=== PATIENT | female | born 1960 | race Caucasian/White ===

== ENCOUNTER 2022-06-17 15:01 | Inpatient (IN) | payer BC, MEDICARE, SELFPAY ==
[2022-06-17] VITALS (10 sets, daily range): BP systolic 108–163; BP diastolic 60–84; PULSE 69–95; RESP 16–18; TEMP 36.4–36.7; O2SAT 95–98; BMI 15.6
[2022-06-17 15:49] LABS: Basophils Percent Auto 0.5 % (0.0-3.0); Eosinophils Percent Auto 1.1 % (0.0-7.0); Hematocrit 34.6 % (33.0-51.0); Hemoglobin* 10.6 gm/dL (12.0-16.0); Immature Granulocytes Pct Auto 1.5 %; Lymphocytes Percent Auto 8.6 % (20-44); Mean Corpuscular HGB Conc 31 gm/dL (32-36); Mean Corpuscular Hemoglobin 33 pg (26-34); Mean Corpuscular Volume 108 fL (80-100); Monocytes Percent Auto 5.2 % (0.0-11.0); Neutrophils Percent Auto 83.1 % (42.0-72.0); Platelet Count* 417 K/uL (140-440); RDW Coefficient of Variation % 18.3 % (11.5-15.5); Red Blood Count 3.22 m/uL (4.00-5.20); White Blood Count* 13.71 K/uL (4.50-11.00)
[2022-06-17 15:51] LABS: Slide Review Reflex Yes
[2022-06-17 16:05] LABS: Albumin* 3.2 g/dL (3.3-5.0); Chloride* 118 mmol/L (96-114); Potassium* 3.9 mmol/L (3.6-5.1); Sodium* 143 mmol/L (135-149)
[2022-06-17 16:08] LABS: Blood Urea Nitrogen* 51 mg/dL (7-30); Carbon Dioxide* 17 mmol/L (20-32); Creatinine* 1.5 mg/dL (0.5-1.5); Estimated Glomerular Filt Rate 39 ml/min
[2022-06-17 16:09] LABS: Calcium* 8.1 mg/dL (8.4-10.6); Glucose* 60 mg/dL (60-115); Phosphorus* 4.4 mg/dL (2.5-4.5)
[2022-06-17 16:11] LABS: C Reactive Protein* 5.3 mg/dL (0.5-1.0)
[2022-06-17 16:16] LABS: Slide Review Acceptable Review (Acceptable)
[2022-06-17 16:21] LABS: Troponin I* < 0.01 ng/mL (0.01-0.04)
--- NOTE | 2022-06-17 16:25 | PM.IMHP1 ---
Hospitalist- H&P: HPI History of Present Illness Time Seen by Provider: 16:00 Date Seen: 06/17/22 Chief complaint: Gangrene R 3rd toe, cellulitis R foot up to ankle Narrative: Diamond Henson is a 61 year old woman who presents to the hospital today as a direct admit from Dr. Venkatesh Persaud, work environment safety inspector, who refers the patient for admission to the hospital due to gangrene of right 3rd toe with associated cellulitis up to the level of the ankle and the same right foot. Patient tells me she has had an evolving wound right 3rd toe over the past 2 1/2 months. Over the last 1-2 weeks it has become significantly worse. Presented to 1 of her her primary care physicians, Dr. Cabello, today who referred her to Dr. Krishna, who upon assessing the patient refer the patient to the hospital for a direct admission for urgent OR debridement and possible amputation. Patient denies any pain. She is concerned about postoperative pain. Known to have diabetic peripheral neuropathy. Diagnosed with diabetes mellitus type 1 when she was 42 years of age. Tells me her blood sugars normally run between 90 and 120. Uses an insulin pump. Uses the [employer] blood glucose monitoring device. Denies hypo or hyperglycemia. Tells me she has lost about 30 lb over the past 3 months. This has stabilized and she is no longer losing weight. Denies fevers, rigors, diaphoresis. Denies night sweats. Review of Systems Status of ROS: Reports: 10 or more systems reviewed and unremarkable except as noted in History and below Narrative: Denies chest heaviness, pressure, tightness, or pain. Denies syncope or near-syncope. Denies nausea or vomiting. Denies palpitations or chest fluttering. Denies cough, dyspnea, paroxysmal nocturnal dyspnea, orthopnea. Takes torsemide diuretic daily. Develops dependent edema lower extremities when does not take her diuretic. Chronic diarrhea. Chronic pancreatic insufficiency for which she takes pancreatic enzymes. Concerned about getting nausea and vomiting when she takes opioids. Tells me in no uncertain terms that she does not have allergy to opioids. Has had intermittent nausea vomiting when taking morphine and codeine. Currently not taking any opioids. History of chronic pain for which she took opioids on a contract. Able to carry out her activities of daily living without any concerns. Designates her , Jasbir, as her power of civil attorney for health should that be required. His cell phone number is [phone]. Requests attempted resuscitation only with witnessed arrest. Does not wish to be kept alive in a persistent vegetative state. [facility] Medical History Abnormal coronary angiogram Abnormal nuclear stress test Atherosclerosis of [place] coronary artery of [place] heart without angina pectoris Cholelithiasis Chronic diarrhea Chronic kidney disease, stage 3b Diabetes mellitus type 1 with complications DM type 1 with diabetic peripheral neuropathy Essential hypertension History of colitis History of COVID-19 History of rectal bleeding History of stroke History of tobacco abuse History of upper gastrointestinal bleeding Hyperlipidemia Insulin pump in place Iron deficiency anemia Malabsorption due to disorder of pancreas Multiple subsegmental pulmonary emboli without acute cor pulmonale Neurogenic bowel Pancreatic steatorrhea Personality disorder Small bowel perforation Stenosis of left anterior descending artery Type 1 diabetes mellitus with diabetic gastropathy Surgical History History of gastric bypass Status post section Status post laparotomy Meds Home Medications and Allergies Home Medications Medication Instructions Recorded Confirmed Type aspirin 81 mg tablet,delayed 81 mg PO DAILY 06/17/22 06/17/22 History release bupropion HCl 75 mg tablet 75 mg PO BID 06/17/22 06/17/22 History cholecalciferol (vitamin D3) 125 125 mcg PO DAILY 06/17/22 06/17/22 History mcg (5,000 unit) tablet (Vitamin D3) clopidogrel 75 mg tablet 75 mg PO DAILY 06/17/22 06/17/22 History cyanocobalamin (vitamin B-12) 500 1,000 mcg PO DAILY 06/17/22 06/17/22 History mcg tablet (Vitamin B-12) insulin aspart U-100 100 unit/mL subcut DAILY 06/17/22 History subcutaneous solution (Novolog U-100 Insulin aspart) nitroglycerin 0.4 mg sublingual 0.4 mg sublingual Q5M PRN 06/17/22 06/17/22 History tablet pantoprazole 40 mg tablet,delayed 40 mg PO BID 06/17/22 06/17/22 History release potassium chloride 20 mEq 20 meq PO BIDWM 06/17/22 06/17/22 History tablet,extended release(part/cryst) pyridoxine (vitamin B6) 50 mg 50 mg PO DAILY 06/17/22 06/17/22 History tablet (Vitamin B-6) torsemide 20 mg tablet 40 mg PO DAILY 06/17/22 06/17/22 History Exam Narrative: Exam Narrative: Alert, oriented to self, place, time, situation. Angry about her current medical condition and need to be in the hospital. Articulate, cooperative. Blunt in her interactions. Mood and affect are congruent. Very thin. Cachectic appearance. Decreased hearing bilaterally. Able to hear slightly lower than conversation voice. Bilateral cataracts, small. Vision otherwise grossly normal. Edentulous. Neck is supple. Midline trachea. Normal thyroid. No JVD or hepatojugular reflux. No carotid bruits. Lungs are clear to auscultation bilaterally. No CVA tenderness. Heart tones with regular rhythm, normal S1-S2, without murmur, gallop, or rub. Abdomen with active bowel sounds, soft, nontender. Thin abdomen. Skin is thin with subcutaneous atrophy. Multiple ecchymosis of upper and lower extremities. No jaundice, petechiae. Cellulitis right lower extremities up to the level of the ankle. Gangrene of right 3rd toe. Palpable edema bilateral lower extremities up to the level of the knee. Independent transfer, station, gait. No tremor, asterixis, or ataxia. No focal motor neurologic deficits. Hospitalist - H&P: Result Labs Labs: Short CBC 06/17/22 Range/Units 15:36 WBC 13.71 H (4.50-11.00) K/uL Hgb 10.6 L (12.0-16.0) gm/dL Hct 34.6 (33.0-51.0) % Plt Count 417 (140-440) K/uL BMP 06/17/22 15:36 Sodium 143 Potassium 3.9 Chloride 118 H Carbon Dioxide 17 L BUN 51 H Creatinine 1.5 Glucose 60 Calcium 8.1 L Cardiac Enzymes 06/17/22 Range/Units 15:36 Troponin I < 0.01 L (0.01-0.04) ng/mL Liver Function 06/17/22 Range/Units 15:36 Albumin 3.2 L (3.3-5.0) g/dL Assessment and Plan Assessment and plan (1) Cellulitis of right foot: Status: Acute Assessment and Plan: Blood cultures obtained. Initiate piperacillin with tazobactam 2.25 mg IV Q 6 hours. (2) Gangrene associated with type 1 diabetes mellitus: Problem comment: Right 3rd toe. Suspect osteomyelitis. Status: Acute Assessment and Plan: Will go to the OR later today. NPO. IV fluids with lactated Ringer's. Will write for postoperative opioid order for pain management, hydromorphone, with p.r.n. ondansetron for nausea. (3) Diabetes mellitus type 1 with complications: Status: Acute Assessment and Plan: Continue with glucose monitoring and insulin administration. Architecture Manager consult. (4) DM type 1 with diabetic peripheral neuropathy: Status: Acute Assessment and Plan: Continue the supportive medications. (5) Insulin pump in place: Status: Acute (6) Hypoglycemia due to type 1 diabetes mellitus: Status: Acute Assessment and Plan: Decrease insulin dosing. Glucagon 1 mg IV x1. D5 normal saline 500 mL over 1 hour. Plan 1. Reviewed with patient and . They are agreeable. 2. Will support Dr. Krishna's efforts while the patient is in hospital.
[2022-06-17] MEDS: LACTATED RINGERS 1000 ML 1,000 ML 75 ML IV (16:41)
[2022-06-17] MEDS: GLUCAGON,HUMAN RECOMBINANT 1 MG/ML VIAL IV (16:41)
[2022-06-17 17:59] LABS: SARS PCR* Negative SARS-CoV-2 (Negative)
[2022-06-17 18:32] LABS: Appearance Urine Clear (Clear); Bilirubin Urine Negative (Negative); Blood Urine Negative (Negative); Color Urine Yellow (Yellow); Glucose Urine Negative (Negative); Ketones Urine Negative (Negative); Leukocyte Esterase Urine Negative (Negative); Nitrite Urine Negative (Negative); Protein Urine 1+ (Negative); Specific Gravity Urine 1.015 (1.000-1.030); Urobilinogen Urine 0.2 (0.2-1.0); pH Urine 5.5 (5.0-8.5)
[2022-06-17 18:38] LABS: RBC Urine 0-2 (0-2); WBC Urine 0-2 (0-5)
[2022-06-17 18:39] LABS: Squamous Epithelial Cell Urine Few (None-Few)
[2022-06-17] MEDS: PIPERACILLIN/TAZOBACTAM 2.25 GM in 0.9 % SODIUM CHLORIDE Mini-bag 100 ML IVPB (18:59)
--- NOTE | 2022-06-17 20:10 | SUR.OPER ---
PATIENT QUESTIONS ANSWERED SATISFACTORILY PREOPERATIVELY.? PATIENT BROUGHT TO OR #2 PER MED/SURG BED.? Patient positioned supine on OR #2 bed.? The perioperative?team supported arms bilaterally on arm boards.? Final approval of positioning by surgeon.
--- NOTE | 2022-06-17 20:22 | PM.GSPRC ---
Operative Note Date of procedure: 06/17/22 Pre-op diagnosis: Gangrene 3rd toe right foot Post-op diagnosis: Gangrene 3rd toe right foot Type of Procedure: Amputation 3rd toe right foot by MPJ disarticulation Indications: patient was admitted to the hospital for gangrene of right 3rd toe. Urgent surgical intervention is warranted to control infection. I discussed this at length with the patient and her . I reviewed the procedure, recovery, expectations and potential complications. Written consent was obtained. Procedure Description: After discussing the risks and benefits of the procedure, the patient signed informed consent.? The operative site was marked and the patient was brought to the operating room and placed on the operating table in supine position.? Care was taken to pad the patient's pressure points.?? The patient was then given sedation by anesthesia.?? I injected 15 mL 0.5% Marcaine plain into the right foot. The operative site was then prepped and draped in the usual sterile fashion.? A time-out was then performed. An incision was made around the base of the 3rd toe down to bone. Minimal bleeding encountered. Surgeon was carried down into the metatarsophalangeal joint and the 3rd toe disarticulated and removed in total. Wound cultures from the deep recess were obtained and sent for sensitivities. The proximal phalanx was fragmented brown and necrotic. Third metatarsal head was normal in appearance with no sign of erosion or infection. Surrounding subcutaneous necrotic tissue was excised back to healthy bleeding margins. Wound was then thoroughly irrigated with sterile saline and packed open with saline moistened gauze. A small ulceration was noted to the medial aspect of the 4th toe. Sharp excisional debridement was performed on this toe as well including subcutaneous tissue but not bone. Sterile dressings were then applied. ? The patient was then woken and transported to [facility]. The patient tolerated the procedure well. continue IV antibiotics. Findings: Complications: None apparent culture obtained and sent for sensitivities. Anesthesia: MAC and local Surgeon: Venkatesh Krishna DPM Estimated blood loss (mL): 5 Condition: stable Disposition: floor
--- NOTE | 2022-06-17 20:31 | W.ANESCHARGE ---
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
[2022-06-17] MEDS: OMEPRAZOLE 20 MG CAPSULE DR 40 MG PO (21:46)
[2022-06-17] MEDS: buPROPion HCL 75 MG TABLET PO (21:46)
[2022-06-17] MEDS: NICOTINE 21 MG PATCH 1 PATCH TRANSDERMA (21:47)
--- NOTE | 2022-06-17 23:11 | PC.NURSE ---
Shift [id number]- Patient arrives with . She is very brief and josh with answers to some intake questions. She arrives with mepilex to coccyx- she states there is a small wound under- Mepilex was clean, dry and intact. Also noted was an incision to stomach, though patient states she forgot what the procedure was for. She goes to surgery this evening. After return, vital signs are reassuring, she is tolerating regular diet and denies pain. She has insulin pump and meter- meter reads at 72 this afternoon- MD updated- see orders and charting for administrations. Blood glucose is >200 prior to surgery and >200 upon return from surgery- see charting for values.
[2022-06-18] VITALS (9 sets, daily range): BP systolic 120–144; BP diastolic 65–78; PULSE 67–73; RESP 14–18; TEMP 36.5–37.4; O2SAT 93–100; BMI 15.5
[2022-06-18] MEDS: PIPERACILLIN/TAZOBACTAM 2.25 GM in 0.9 % SODIUM CHLORIDE Mini-bag 100 ML IVPB ×4 (01:07→18:46)
[2022-06-18] MEDS: 0.9 % SODIUM CHLORIDE 250 ml IV (01:08)
[2022-06-18] MEDS: HYDROmorphone 2 MG TABLET PO ×3 (03:18→21:07)
--- NOTE | 2022-06-18 05:33 | PC.NURSE ---
[id number] Pt can be disagreeable with care team. therapeutic communication and trust building important with patient. Pt L wrist IV infiltrated and pt refused IV placement to R side, stating she won't be able to write or wipe if there's an IV there, educated pt that she will be able to write and wipe even with an IV to R arm, pt continued to refuse, new IV started to L upper FA. At 2300, Pt own glucometer read high which indicated >400, Pt insulin suggested was 2.8units, patient states she is sensitive to insulin so only bolused 1.25 units. recheck at 1130 still stated high, pt did not give herself insulin at this time, rechecked at midnight, continued to read high, bolused 1.25 units again. At this point nurse checked BG with hospital glucometer, results of BG at 0010 with hospital glucometer was 257, at this time pt own glucometer read 393. informed patient that due to large discrepency between her own and hospital blood glucose reading we will need to continue checking her BG with hospital glucometer. Asked patient when the last time she calibrated her glucometer was, she stated yesterday when I inserted a new one, informed her that calibration was off and she needed to follow up. at 0300 BG reading, pt refused nurse to check with hospital glucometer, pt checked with her own. Pt denied pain rating 0/10 until approx 0300, at which point when nurse entered room pt stated she can't take this pain anymore and rated pain 8/10, when asked when pain started she said she was having it all night but didn't want to tell nurse because she didn't want to take pain medication. educated pt and she has the right to refuse pain medication but it was important to inform care team of pain so management can be achieved, prn medication administered, reassessment of pain 5/10 and pt stated it took the edge off and it was tolerable. ambulating to BR with walker, SBA, tolerated activity fairly well. Dressing to R food intact, sanguineous drainage noted to 3rd R toe, reinforcement not needed at this time. R leg elevated with bed and pillow. Pt STELLA applied to L leg, pt refused SCD placement. Nicotine patch present to L shoulder. pt denies N/V.
[2022-06-18] MEDS: POTASSIUM CHLORIDE 10 MEQ CAPSULE ER 20 MEQ PO ×2 (08:21→18:46)
[2022-06-18] MEDS: PYRIDOXINE HCL (VITAMIN B6) 25 MG TABLET 50 MG PO (08:38)
[2022-06-18] MEDS: buPROPion HCL 75 MG TABLET PO ×2 (08:38→21:06)
[2022-06-18] MEDS: CYANOCOBALAMIN (VITAMIN B-12) 500 MCG TABLET 1000 MCG PO (08:39)
[2022-06-18] MEDS: CLOPIDOGREL 75 MG TABLET PO (08:39)
[2022-06-18] MEDS: TORSEMIDE 20 MG TABLET 40 MG PO (08:39)
--- NOTE | 2022-06-18 10:46 | P.IMPN_ITS ---
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 Krishna of Podiatry - on Zosyn - arterial u/s and segmental pressures ordered Status: Acute (2) Noncompliance by declining service: Problem details: - patient declining labs 06/18, amenable to having them drawn 06/19 - also declining SSI and regular accuchecks, would prefer to use own meter, own insulin and SS, and self-administer her Imodium - able to verbalize risks, met with administration 06/18 to discuss behavior e xpectations Status: Acute (3) Diabetes mellitus type 1 with complications: Problem details: - last outpatient AqC 6.2 on 03/2022 Status: Acute (4) DM type 1 with diabetic peripheral neuropathy: Status: Acute (5) Insulin pump in place: Status: Acute (6) Hypoglycemia due to type 1 diabetes mellitus: Status: Acute (7) Chronic diarrhea: Problem details: - on chronic Imodium as outpatient, would like to keep at bedside and self- administer prn Status: Acute Plan - per above - home Plavix for prophylaxis - multiple visits to patient room today to discuss behaviors and expectation. She had plan to leave AMA on 2 different occasions; was amenable to remaining in the hospital after multiple risk benefit discussions - also discussed patient's concerns with Jeffrey and PCP, Dr. Floyd. They both recommend the patient stay in the hospital for medical management of Subjective Date Seen: 06/18/22 Interval history: Diamond has refused a variety of cares this morning. She had initially hoped to be discharged home today; considered leaving AMA, eventually agreed to stay in the hospital. She was seen by administration to discuss her concerns. States pain is moderate, feels that this is appropriate and not out of proportion to what she would expect postoperatively. She is using her own blood sugar monitor and sliding scale insulin for diabetic management. Exam Narrative: Exam Narrative: GEN: Alert in oriented, sitting in bedside chair HEENT: EOMIs bilaterally, no scleral icterus CV: RRR, No concerning murmurs, rubs, or gallops R: LCTA bilaterally without concerning wheezing, air movement adequate Ext: Concerning edema, right 3rd toe is wrapped, mild surrounding erythema noted Skin: Scattered bruising of extremities noted Neuro: No focal deficits Psych: Intermittent agitation regarding hospital stay, redirectable Const: Vital Signs, click to edit/add: Vital Signs - 24 hr 06/17/22 17:40 06/17/22 17:40 06/17/22 19:07 Temperature 98.1 F 98 F Pulse Rate Pulse Rate [Pulse Oximeter] 95 79 Respiratory Rate 18 16 Blood Pressure [Le ft Arm] 137/70 136/74 Blood Pressure [Ri ght Arm] Pulse Oximetry 95 95 95 Oxygen Delivery Me thod Room Air Room Air 06/17/22 20:25 06/17/22 20:30 06/17/22 20:45 Temperature 97.6 F Pulse Rate 71 Pulse Rate [Pulse Oximeter] 72 71 Respiratory Rate 16 16 16 Blood Pressure [Le ft Arm] 108/62 109/60 120/64 Blood Pressure [Ri ght Arm] Pulse Oximetry 97 97 Oxygen Delivery Me thod Room Air Room Air Room Air 06/17/22 21:00 06/17/22 21:30 06/17/22 22:00 Temperature Pulse Rate Pulse Rate [Pulse Oximeter] 71 69 70 Respiratory Rate 16 16 16 Blood Pressure [Le ft Arm] 128/73 134/72 163/84 H Blood Pressure [Ri ght Arm] Pulse Oximetry 97 95 96 Oxygen Delivery Me thod Room Air Room Air Room Air 06/17/22 22:45 06/17/22 23:00 06/17/22 23:00 Temperature 98.0 F Pulse Rate Pulse Rate [Pulse Oximeter] 75 88 Respiratory Rate 16 16 16 Blood Pressure [Le ft Arm] 126/70 121/78 Blood Pressure [Ri ght Arm] Pulse Oximetry 97 95 95 Oxygen Delivery Me thod Room Air Room Air Room Air 06/18/22 00:00 06/18/22 02:17 06/18/22 01:00 Temperature 97.9 F 98.0 F 97.8 F Pulse Rate Pulse Rate [Pulse Oximeter] 73 68 69 Respiratory Rate 16 16 16 Blood Pressure [Le ft Arm] 132/73 120/65 124/68 Blood Pressure [Ri ght Arm] Pulse Oximetry 100 98 97 Oxygen Delivery Me thod Room Air Room Air Room Air 06/18/22 02:00 06/18/22 07:00 06/18/22 07:00 Temperature 98.0 F 98.5 F Pulse Rate Pulse Rate [Pulse Oximeter] 68 67 67 Respiratory Rate 16 14 14 Blood Pressure [Le ft Arm] 120/65 Blood Pressure [Ri ght Arm] 144/78 H Pulse Oximetry 98 96 Oxygen Delivery Me thod Room Air Room Air 06/18/22 07:00 Temperature Pulse Rate Pulse Rate [Pulse Oximeter] Respiratory Rate 14 Blood Pressure [Le ft Arm] Blood Pressure [Ri ght Arm] Pulse Oximetry 96 Oxygen Delivery Me thod Room Air Labs Labs: Laboratory Results - last 24 hr 06/17/22 06/17/22 06/17/22 15:34 15:36 15:36 WBC 13.71 H RBC 3.22 L Hgb 10.6 L Hct 34.6 MCV 108 H MCH 33 MCHC 31 L RDW Coeff of [place] 18.3 H Plt Count 417 Neut % (Auto) 83.1 H Lymph % (Auto) 8.6 L [place] % (Auto) 5.2 Eos % (Auto) 1.1 Baso % (Auto) 0.5 Neut # (Auto) 11.40 H Lymph # (Auto) 1.20 [place] # (Auto) 0.70 Eos # (Auto) 0.20 Baso # (Auto) 0.10 Diff Slide Review Acceptable Review Sodium 143 Potassium 3.9 Chloride 118 H Carbon Dioxide 17 L BUN 51 H Creatinine 1.5 Estimated GFR 39 Glucose 60 Lactate Calcium 8.1 L Phosphorus 4.4 Troponin I < 0.01 L C-Reactive Protein 5.3 H Albumin 3.2 L Urine Color Yellow Urine Appearance Clear Urine pH 5.5 Ur Specific [place] 1.015 Urine Protein 1+ A Urine Glucose (UA) Negative Urine Ketones Negative Urine Blood Negative Urine Nitrite Negative Urine Bilirubin Negative Urine Urobilinogen 0.2 Ur Leukocyte Esterase Negative Urine RBC 0-2 Urine WBC 0-2 Ur Squamous Epith Cells Few Urine Bacteria None Urine Yeast Many A SARS-CoV-2 (PCR) 06/17/22 06/17/22 15:36 17:16 WBC RBC Hgb Hct MCV MCH MCHC RDW Coeff of [place] Plt Count Neut % (Auto) Lymph % (Auto) [place] % (Auto) Eos % (Auto) Baso % (Auto) Neut # (Auto) Lymph # (Auto) [place] # (Auto) Eos # (Auto) Baso # (Auto) Diff Slide Review Sodium Potassium Chloride Carbon Dioxide BUN Creatinine Estimated GFR Glucose Lactate 2.0 H Calcium Phosphorus Troponin I C-Reactive Protein Albumin Urine Color Urine Appearance Urine pH Ur Specific [place] Urine Protein Urine Glucose (UA) Urine Ketones Urine Blood Urine Nitrite Urine Bilirubin Urine Urobilinogen Ur Leukocyte Esterase Urine RBC Urine WBC Ur Squamous Epith Cells Urine Bacteria Urine Yeast SARS-CoV-2 (PCR) Negative SARS-CoV-2
--- NOTE | 2022-06-18 11:30 | PC.NURSE ---
Patient requesting to speak with nursing hydroelectric powerplant supervisor as patient refusing to allow staff to see what medications patient is taking out of her pocket. Slurry Tank Operator spoke with patient. Patient refused to allow nursing hydroelectric powerplant supervisor to see and identify the medication that she took. Patient stated I have had chronic diarrhea for years and I am told by my doctor that I need to have Imodium and that I can just buy it over the counter like any other pain relieving medication. Educated patient that it is our policy to have our pharmacy identify the home medication to ensure for her safety that we are not giving other medications that could interact with medications that she has been taking from home. Patient continues to refuse. Framing Mechanic On-call was notified and spoke with patient as well. Patient continues to refuse to allow staff to identify medication. Dr. Montesinos was notified of this. Asked patient to fill out a belongings form and patient refused to at this time.
--- NOTE | 2022-06-18 12:30 | PC.NURSE ---
Blood sugar was checked at 1130 and this was 278. Patient stated that she recalibrated her dexacom and that it is accurate with our readings. Patient would not allow content writer to look at number on dexacom. Educated patient that per the insulin protocol, she needs 3units of aspart insulin to cover her blood sugar. Patient refused insulin and stated that her pump is giving her a tenth of a unit of insulin per hour. She stated she was not going to eat lunch today because her brought her in a bunch of snacks that she has been munching on all morning. notified of this.
--- NOTE | 2022-06-18 13:07 | REH.OT ---
Pt refused 3 attempts for OT evaluation. She reports that there is nothing she needs and she is getting by just fine.
--- NOTE | 2022-06-18 14:10 | PC.NURSE ---
End of Shift([id number]) Patient has been angry, pleasant, and cooperative at times. Patient is vitally stable, lungs clear, BS WNL, IV intact. Patient 1 assist, walker, gb. Patient rated pain 6/10 once, patient declined pain meds saying I want to go as long as I can with out pain meds. Patient declined Tylenol because she is a type 1 Diabetic, and later reports no pain. While beginning dressing change patient took out a box of Imodium, telegraphic typewriter installer educated how it can be unsafe to take medications the doctor is not aware the patient is taking the medication. Patient pointed at telegraphic typewriter installer and told her to shut her mouth. Sewing Demonstrator reported to charge nurse that patient has own Imodium that she is going to take. Patient took 2 Imodium and put box in patient's pocket. Sewing Demonstrator continued with dressing change and warehouse puller spoke with patient about the Imodium. Patient is angry and expresses she does not want to be baby sat. Later clinical nursing coordinator also had a conversation with patient. Sewing Demonstrator has been taking blood sugar by finger stick as overnight dexacom blood sugar was much higher then finger stick. Patient declines insulin provided by RN. laboratory animal facility supervisor filled what she could of insulin pump sheet but patient would not let warehouse puller see patient's insulin pump. Patient right 3rd toe dressing change complete, vashe, gauze, kerlix, and hortensia bandage used. Patient's right leg above the ankle but below the knee is reddened and warm. Patient tolerating regular diet and urinating.
--- NOTE | 2022-06-18 18:43 | W.PM.PODPN ---
Podiatry-PN: Subj Subjective Time Seen by Provider: 18:30 Date Seen: 06/18/22 Interval history: Patient seen bedside today for recheck of her right diabetic foot infection. She is postop day 1 following open amputation of 3rd toe right foot. She states that she is doing well overall with no significant concerns with verbalized to me. She feels the redness, swelling and discomfort in her right foot is at her baseline. 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 Krishna of Podiatry - on Zosyn - arterial u/s and segmental pressures ordered Status: Acute (2) Cellulitis of right foot: Status: Acute Plan Status post 3rd toe amputation right foot postop day 1. Cultures are growing gram positive cocci but sensitivities are not complete. Recommend we wait until sensitivities available before discharge home with oral antibiotics. VASHE moistened gauze packed into the wound. Nursing to change tomorrow. Weightbearing as tolerated. Arterial ultrasound with GRAEME and segmental pressures has been ordered but not completed. Exam Narrative: Exam Narrative: Right foot with diminished edema and improving erythema. Open surgical wound at the 3rd metatarsal head with small amount of medial skin necrosis. No purulence noted. Wound depth with no additional necrosis. Exposed 3rd metatarsal head. Stable ulceration medial aspect 4th toe PIPJ. No exposed bone. Improved granulation tissue. Const: Vital Signs, click to edit/add: Vital Signs - 24 hr 06/17/22 19:07 06/17/22 20:25 06/17/22 20:30 Temperature 98 F 97.6 F Pulse Rate 71 Pulse Rate [Pulse Oximeter] 79 72 Respiratory Rate 16 16 16 Blood Pressure [Le ft Arm] 136/74 108/62 109/60 Blood Pressure [Ri ght Arm] Pulse Oximetry 95 97 Oxygen Delivery Me thod Room Air Room Air Room Air 06/17/22 20:45 06/17/22 21:00 06/17/22 21:30 Temperature Pulse Rate Pulse Rate [Pulse Oximeter] 71 71 69 Respiratory Rate 16 16 16 Blood Pressure [Le ft Arm] 120/64 128/73 134/72 Blood Pressure [Ri ght Arm] Pulse Oximetry 97 97 95 Oxygen Delivery Me thod Room Air Room Air Room Air 06/17/22 22:00 06/17/22 22:45 06/17/22 23:00 Temperature Pulse Rate Pulse Rate [Pulse Oximeter] 70 75 Respiratory Rate 16 16 16 Blood Pressure [Le ft Arm] 163/84 H 126/70 Blood Pressure [Ri ght Arm] Pulse Oximetry 96 97 95 Oxygen Delivery Me thod Room Air Room Air Room Air 06/17/22 23:00 06/18/22 00:00 06/18/22 02:17 Temperature 98.0 F 97.9 F 98.0 F Pulse Rate Pulse Rate [Pulse Oximeter] 88 73 68 Respiratory Rate 16 16 16 Blood Pressure [Le ft Arm] 121/78 132/73 120/65 Blood Pressure [Ri ght Arm] Pulse Oximetry 95 100 98 Oxygen Delivery Me thod Room Air Room Air Room Air 06/18/22 01:00 06/18/22 02:00 06/18/22 07:00 Temperature 97.8 F 98.0 F 98.5 F Pulse Rate Pulse Rate [Pulse Oximeter] 69 68 67 Respiratory Rate 16 16 14 Blood Pressure [Le ft Arm] 124/68 120/65 Blood Pressure [Ri ght Arm] 144/78 H Pulse Oximetry 97 98 96 Oxygen Delivery Me thod Room Air Room Air Room Air 06/18/22 07:00 06/18/22 07:00 06/18/22 11:00 Temperature 99.3 F Pulse Rate Pulse Rate [Pulse Oximeter] 67 72 Respiratory Rate 14 14 14 Blood Pressure [Le ft Arm] 134/68 Blood Pressure [Ri ght Arm] Pulse Oximetry 96 94 Oxygen Delivery Me thod Room Air Room Air 06/18/22 15:00 Temperature Pulse Rate Pulse Rate [Pulse Oximeter] Respiratory Rate Blood Pressure [Le ft Arm] Blood Pressure [Ri ght Arm] Pulse Oximetry 94 Oxygen Delivery Me thod Room Air
--- NOTE | 2022-06-18 20:01 | PC.NURSE ---
End of shift-- Pt has been pleasant and cooperative this shift. Alert and oriented. She c/o pain which she rated 8 out of 10 in her foot and was given Dilaudid with stated relief. Blood sugar 118. Dressing to right toe was changed by MD at bedside and is C/D/I. Pt has baseline neuropathy and weakness in toes noted. Cap refill <3sec. Area above hortensia bandage is reddened, edematous and warm to touch. LS CTA. She denied nausea and ate 100% of a late lunch, but turned away her dinner tray. Report to LENNIE Negrete.
[2022-06-18] MEDS: NICOTINE 21 MG PATCH 1 PATCH TRANSDERMA (21:11)
[2022-06-18] MEDS: SODIUM CHLORIDE 0.9 % (FLUSH) 10 ML SYRINGE 5 ML IVF (21:12)
[2022-06-19] MEDS: PIPERACILLIN/TAZOBACTAM 2.25 GM in 0.9 % SODIUM CHLORIDE Mini-bag 100 ML IVPB ×4 (01:40→19:10)
[2022-06-19] MEDS: 0.9 % SODIUM CHLORIDE 250 ml IV (01:42)
[2022-06-19 05:00] VITALS: BP 134/68; BP 145/72; PULSE 71; RESP 18; TEMP 36.5; O2SAT 93
[2022-06-19 06:18] LABS: Basophils Percent Auto 0.7 % (0.0-3.0); Hematocrit 32.3 % (33.0-51.0); Hemoglobin* 9.7 gm/dL (12.0-16.0); Immature Granulocytes Pct Auto 1.4 %; Lymphocytes Percent Auto 8.8 % (20-44); Mean Corpuscular HGB Conc 30 gm/dL (32-36); Mean Corpuscular Hemoglobin 33 pg (26-34); Mean Corpuscular Volume 110 fL (80-100); Neutrophils Percent Auto 82.1 % (42.0-72.0); Platelet Count* 393 K/uL (140-440); RDW Coefficient of Variation % 17.5 % (11.5-15.5); Red Blood Count 2.94 m/uL (4.00-5.20); White Blood Count* 11.67 K/uL (4.50-11.00)
[2022-06-19 06:20] LABS: Lactate* 0.9 mmol/L (0.5-1.9)
[2022-06-19 06:23] LABS: Slide Review Reflex No
[2022-06-19] MEDS: HYDROmorphone 2 MG TABLET PO ×4 (06:39→17:41)
[2022-06-19 06:41] LABS: Chloride* 118 mmol/L (96-114); Potassium* 3.9 mmol/L (3.6-5.1); Sodium* 141 mmol/L (135-149)
[2022-06-19 06:45] LABS: Blood Urea Nitrogen* 46 mg/dL (7-30); Carbon Dioxide* 13 mmol/L (20-32); Creatinine* 1.6 mg/dL (0.5-1.5); Est. Creatinine Clearance* 25.64; Estimated Glomerular Filt Rate 36 ml/min; Glucose* 206 mg/dL (60-115)
[2022-06-19 06:48] LABS: C Reactive Protein* 3.9 mg/dL (0.5-1.0)
[2022-06-19 07:00] VITALS: PULSE 79; RESP 18; O2SAT 91
[2022-06-19] MEDS: CLOPIDOGREL 75 MG TABLET PO (08:46)
[2022-06-19] MEDS: TORSEMIDE 20 MG TABLET 40 MG PO (08:46)
[2022-06-19] MEDS: buPROPion HCL 75 MG TABLET PO (08:47)
[2022-06-19] MEDS: POTASSIUM CHLORIDE 10 MEQ CAPSULE ER 20 MEQ PO ×2 (08:47→17:41)
[2022-06-19] MEDS: PYRIDOXINE HCL (VITAMIN B6) 25 MG TABLET 50 MG PO (08:47)
[2022-06-19] MEDS: CYANOCOBALAMIN (VITAMIN B-12) 500 MCG TABLET 1000 MCG PO (08:49)
[2022-06-19] MEDS: SODIUM CHLORIDE 0.9 % (FLUSH) 10 ML SYRINGE 5 ML IVF (09:00)
[2022-06-19] MEDS: NICOTINE 21 MG PATCH 1 PATCH TRANSDERMA (09:31)
[2022-06-19 12:12] VITALS: BP 130/83; PULSE 78; RESP 18; TEMP 36.8; O2SAT 97
[2022-06-19 12:36] VITALS: PULSE 71; RESP 18; TEMP 36.8
--- NOTE | 2022-06-19 13:13 | PC.SOCIAL ---
Addendum entered by ESVIN Porter 06/19/22 14:12: Received a phone call from pt's , Jeffrey. Jeffrey states he is at work until or 8:00 pm - 8:30 pm during the weekdays and is concerned about how he will get pt's pain medication, since most pharmacies are closed by the time he is done with work. Jeffrey also asked if pt would receive a bath before discharge. This worker informed that this worker will discuss with nursing and call him back. Discussed with nursing on the medication issue and informed that pt's would like pt to have a bath before leaving the hospital. Nursing will problem solve to see if they can get medication through [employer] [facility]. Nursing will see if pt will take a bath, but pt may refuse. Phone call to pt's , Jasbir, and provided him with the information. Jasbir will try to finish working early tonight and come right to the hospital. Original Note: Discharge planning- Phone call to [facility] ([phone]) to discuss discharge plans for pt. Informed that pt will be discharging from [facility] today. [facility] will inform pt's case aide so services can be resumed. Faxed H&P, progress note, therapy notes, medication list, and MD order to resume Home Health Care Services for nursing-wound care, PT, and OT to assess to [phone]. Phone call to Pt's , Jasbir, to provide update on home care resuming services. There was no answer. This worker left a voicemail providing an update to the information. Provided the contact information for the social work department. Social work will follow up as necessary.
[2022-06-19 14:29] VITALS: PULSE 78; RESP 18; O2SAT 97
--- NOTE | 2022-06-19 15:35 | PM.DS1 ---
DS: Providers Provider Date Seen: 06/19/22 Date of admission: 06/17/22 15:01 Primary care physician: Alexus Floyd DO Admitting Clinician: Fermin Nichols MD Consults: PT, SHERI Attending Physician on discharge: Genesis Montesinos MD Date of Discharge: 06/19/22 DS: Diagnosis Discharge Diagnosis (1) Gangrene associated with type 1 diabetes mellitus: Status: Acute Problem details: - osteomyelitis of R third toe, s/p amputation 06/[address] 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 (patient unable to otherwise attend outpatient appts) (2) Noncompliance by declining service: Status: Acute Problem details: - patient refused regular lab draws, was amenable to lab draw 06/19 - also declining SSI and regular accuchecks, would prefer to use own meter, own insulin and SS, and self-administer her Imodium - able to verbalize risks, met with administration 06/18 to discuss behavior expectations (3) Chronic diarrhea: Status: Acute Problem details: - on chronic Imodium as outpatient, would like to keep at bedside and self-administer prn (4) Diabetes mellitus type 1 with complications: Status: Acute Problem details: - last outpatient A1C 6.2 on 03/2022 (5) Chronic kidney disease, stage 3b: Status: Acute DS: Summary Hospital Course Hospital Course: Diamond is a 61-year-old female who was direct admitted to the hospital from the clinic setting for right 3rd toe osteomyelitis. She underwent an amputation with Dr. Krishna of Podiatry on 06/17. Postoperatively, wound cultures grew out MSSA. She was initially treated with IV Zosyn, transitioned to oral doxycycline upon discharge. She will be discharged home on hospital day 2 with close podiatry and PCP follow-up. We have also ordered ABIs with pressures to be completed as an outpatient, and wound care will be completed by home health care team. Patient's comorbidities remained stable. She refused a variety of cares during stay, plans compliance upon discharge. She will be discharged home with her the evening of 06/19. Time Spent with Patient Time attestation: Total time spent providing and/or coordinating discharge services: Time spent: Greater than 30 minutes Exam Narrative: Exam Narrative: GEN: Alert and oriented, sitting comfortably in bedside chair and speaking in full sentences HEENT: EOMIs bilaterally, no scleral icterus CV: RRR, No concerning murmurs, rubs, or gallops R: LCTA bilaterally without concerning wheezing, air movement adequate Skin: Right foot not formally examined by hospitalist team, wrapped and will be seen by Podiatry today Neuro: Nonfocal Psych: Appropriate Const: Vital Signs, click to edit/add: Vital Signs - 24 hr 06/18/22 21:00 06/18/22 23:29 06/19/22 05:00 Temperature 97.7 F 97.7 F Pulse Rate Pulse Rate [Pulse Oximeter] 71 71 Respiratory Rate 18 18 Blood Pressure [Le ft Arm] 134/68 Blood Pressure [Ri ght Arm] 123/70 145/72 H Pulse Oximetry 93 93 93 Oxygen Delivery Me thod Room Air Room Air Room Air 06/19/22 07:00 06/19/22 07:00 06/19/22 12:12 Temperature 98.2 F Pulse Rate Pulse Rate [Pulse Oximeter] 79 78 Respiratory Rate 18 18 18 Blood Pressure [Le ft Arm] 130/83 Blood Pressure [Ri ght Arm] Pulse Oximetry 91 97 Oxygen Delivery Me thod Room Air Room Air 06/19/22 12:36 06/19/22 14:29 06/19/22 14:29 Temperature 98.2 F Pulse Rate 71 Pulse Rate [Pulse Oximeter] 78 Respiratory Rate 18 18 18 Blood Pressure [Le ft Arm] Blood Pressure [Ri ght Arm] Pulse Oximetry 97 Oxygen Delivery Me thod Room Air DS: Data Data Completed and Pending Labs on day of discharge: Labs from last 24 hours 06/19/22 06/19/22 06/19/22 05:51 05:51 05:51 WBC 11.67 H RBC 2.94 L Hgb 9.7 L Hct 32.3 L MCV 110 H MCH 33 MCHC 30 L RDW Coeff of Brooke 17.5 H Plt Count 393 Neut % (Auto) 82.1 H Lymph % (Auto) 8.8 L [place] % (Auto) 5.0 Eos % (Auto) 2.0 Baso % (Auto) 0.7 Neut # (Auto) 9.60 H Lymph # (Auto) 1.00 [place] # (Auto) 0.60 Eos # (Auto) 0.20 Baso # (Auto) 0.10 Sodium 141 Potassium 3.9 Chloride 118 H Carbon Dioxide 13 L BUN 46 H Creatinine 1.6 H Estimated Creat Clear 25.64 Estimated GFR 36 Glucose 206 H Lactate 0.9 Calcium 8.0 L C-Reactive Protein 3.9 H Preliminary micro results at discharge 06/17/22 20:06 Anaerobic Culture - Preliminary Toe Right Third 06/17/22 00:00 Blood Culture - Preliminary Blood NO GROWTH AFTER 24 HOURS Discharge Plan Discharge Disposition: Home, Self-Care Date of Admission: 06/17/22 15:01 Attending Provider on Discharge: Genesis Montesinos Primary Care Provider: Alexus Floyd Condition: Improved Anticipated Discharge Date/Time: 06/19/22 20:00 Discharge Medications: New doxycycline hyclate 100 mg capsule 100 mg PO BID 14 Days Qty: 28 0RF hydromorphone 2 mg Tablet 2 mg PO Q6H PRNQty: 10 0RF Continued aspirin 81 mg tablet,delayed release (DR/EC) 81 mg PO DAILY bupropion HCl 75 mg tablet 75 mg PO BID cholecalciferol (vitamin D3) [Vitamin D3] 125 mcg (5,000 unit) tablet 125 mcg PO DAILY clopidogrel 75 mg tablet 75 mg PO DAILY cyanocobalamin (vitamin B-12) [Vitamin B-12] 500 mcg tablet 1,000 mcg PO DAILY insulin aspart U-100 [Novolog U-100 Insulin aspart] 100 unit/mL solution subcut DAILY Rx Instructions: PER PUMP nitroglycerin 0.4 mg tablet, sublingual 0.4 mg sublingual Q5M PRN Label Comments: DISSOLVE ONE TABLET UNDER THE TONGUE EVERY 5 MINUTES NEEDED FOR CHEST PAIN. DO NOT EXCEED A TOTAL OF 3 DOSES IN 15 MINUTES (HOLD IF SBP LESS THAN 90 MMHG) pantoprazole 40 mg tablet,delayed release (DR/EC) 40 mg PO BID Label Comments: TAKE 1 TABLET BY MOUTH TWICE DAILY BEFORE MEAL(S) potassium chloride 20 mEq tablet,ER particles/crystals 20 meq PO BIDWM pyridoxine (vitamin B6) [Vitamin B-6] 50 mg tablet 50 mg PO DAILY torsemide 20 mg tablet 40 mg PO DAILY Discharge Orders: Discharge Order (Routine); Ordered 06/19/22 Ordered By: Genesis Montesinos Patient Education: Doxycycline (By mouth), Hydromorphone (By mouth), Osteomyelitis (DC) Additional Instructions: We will have home care resume for therapy and wound care. Antibiotics twice per day with food, pain medicines also sent to [facility]. RESUME PREVIOUS HOME CARE NURSING, PT/OT to EVALUATE/TREAT. ULTRASOUND ON LEGS TO CHECK BLOOD FLOW ON June AT 3:15 PM AT [facility], [phone] Activity Level: Use Crutches Discharge Diet: Diabetic Follow Up Appointments: Alexus Floyd DO [Primary Care Provider] - 07/02/22 8:10 am (see Dr. Floyd in 2 weeks for hospital d/c followup) Venkatesh Krishna DPM [Staff Physician] - 06/25/22 11:00 am Forms: [employer] Info Instructions
--- NOTE | 2022-06-19 17:40 | W.PM.PODPN ---
Podiatry-PN: Subj Subjective Time Seen by Provider: 17:30 Date Seen: 06/19/22 Interval history: Patient seen bedside today for recheck of her right diabetic foot infection. She is postop day 2 following open amputation of 3rd toe right foot. She states that she is doing well overall. She is having some foot pain which is slightly increased from yesterday. 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 The wound still shows some mild areas of concern. saline moistened gauze was packed into the wound with sterile dressing change. This should be done daily. She has good candidate for wound care center. She will follow up with me next week for recheck. We will try to get vascular set up Palpation. Exam Narrative: Exam Narrative: Right foot with decreased erythema and edema. Open wound at the amputation site with exposed 3rd metatarsal head. There is some increased necrosis to the wound edges. Overall deeper wound shows some improved granulation tissue and no progressive necrosis. Const: Vital Signs, click to edit/add: Vital Signs - 24 hr 06/18/22 21:00 06/18/22 23:29 06/19/22 05:00 Temperature 97.7 F 97.7 F Pulse Rate Pulse Rate [Pulse Oximeter] 71 71 Respiratory Rate 18 18 Blood Pressure [Le ft Arm] 134/68 Blood Pressure [Ri ght Arm] 123/70 145/72 H Pulse Oximetry 93 93 93 Oxygen Delivery Az thod Room Air Room Air Room Air 06/19/22 07:00 06/19/22 07:00 06/19/22 12:12 Temperature 98.2 F Pulse Rate Pulse Rate [Pulse Oximeter] 79 78 Respiratory Rate 18 18 18 Blood Pressure [Le ft Arm] 130/83 Blood Pressure [Ri ght Arm] Pulse Oximetry 91 97 Oxygen Delivery Me thod Room Air Room Air 06/19/22 12:36 06/19/22 14:29 06/19/22 14:29 Temperature 98.2 F Pulse Rate 71 Pulse Rate [Pulse Oximeter] 78 Respiratory Rate 18 18 18 Blood Pressure [Le ft Arm] Blood Pressure [Ri ght Arm] Pulse Oximetry 97 Oxygen Delivery Me thod Room Air Podiatry-PN: Obj Labs Labs: Laboratory Results - last 24 hr 06/19/22 06/19/22 06/19/22 05:51 05:51 05:51 WBC 11.67 H RBC 2.94 L Hgb 9.7 L Hct 32.3 L MCV 110 H MCH 33 MCHC 30 L RDW Coeff of Brooke 17.5 H Plt Count 393 Neut % (Auto) 82.1 H Lymph % (Auto) 8.8 L [place] % (Auto) 5.0 Eos % (Auto) 2.0 Baso % (Auto) 0.7 Neut # (Auto) 9.60 H Lymph # (Auto) 1.00 [place] # (Auto) 0.60 Eos # (Auto) 0.20 Baso # (Auto) 0.10 Sodium 141 Potassium 3.9 Chloride 118 H Carbon Dioxide 13 L BUN 46 H Creatinine 1.6 H Estimated Creat Clear 25.64 Estimated GFR 36 Glucose 206 H Lactate 0.9 Calcium 8.0 L C-Reactive Protein 3.9 H
[2022-06-19 19:00] VITALS: BP 140/71; PULSE 74; RESP 20; TEMP 36.9
--- NOTE | 2022-06-19 19:21 | PC.NURSE ---
Pt has been pleasant and cooperative this shift.? Alert and oriented.? She c/o pain which she rated 8 out of 10 in her foot and was given Dilaudid x2 w/relief.? Dressing to right toe was changed by MD at bedside and is C/D/I.? Pt has baseline neuropathy and weakness in toes noted.? Cap refill <3sec.? Area above hortensia bandage is reddened, edematous and warm to touch.
--- NOTE | 2022-06-20 06:44 | PC.NURSE ---
discharge note: Pt given written and verbal discharge instructions, pt reports adequate understanding. Medications sent with patient and patient's spouse. Pt given wheelchair ride out to vehicle to return home with . IV removed with catheter intact. Pt sent home with all valuables. Pt d/c at 2044.
== END 2022-06-19 20:45 | disposition home or self-care (01) | DRG 314 ==
PROVIDERS: Family Medicine; Podiatrist; Admitting Provider Internal Medicine; PCP Family Medicine; Visit Provider Internal Medicine
PROC: 0Y6T0Z0 Detachment at Right 3rd Toe, Complete, Open Approach (ICD-10-PCS; principal; 2022-06-17 19:30)
DX: E10.52 Type 1 diabetes mellitus with diabetic peripheral angiopathy with gangrene (principal); I96 Gangrene, not elsewhere classified; E10.69 Type 1 diabetes mellitus with other specified complication; M86.8X7 Other osteomyelitis, ankle and foot; E10.628 Type 1 diabetes mellitus with other skin complications; L03.115 Cellulitis of right lower limb; B95.61 Methicillin susceptible Staphylococcus aureus infection as the cause of diseases classified elsewhere; E10.43 Type 1 diabetes mellitus with diabetic autonomic (poly)neuropathy; K31.84 Gastroparesis; I25.10 Atherosclerotic heart disease of native coronary artery without angina pectoris; I12.9 Hypertensive chronic kidney disease with stage 1 through stage 4 chronic kidney disease, or unspecified chronic kidney disease; Z96.41 Presence of insulin pump (external) (internal); E10.649 Type 1 diabetes mellitus with hypoglycemia without coma; Z91.199 Patient's noncompliance with other medical treatment and regimen due to unspecified reason; K52.9 Noninfective gastroenteritis and colitis, unspecified; N18.32 Chronic kidney disease, stage 3b; Z79.4 Long term (current) use of insulin; E78.5 Hyperlipidemia, unspecified; Z86.711 Personal history of pulmonary embolism
CPT/HCPCS: 01480; 36415; 80048; 80069; 81001; 82962; 83036; 83605; 84484; 85025; 85027; 86140; 87040; 87070; 87075; 87076; 87186; 87205; 87635; 93005; 97162; 99140; A9270; J1100; J1610; J2250; J2405; J2543; J2704; J3010; J3490; J7042; J7050; J7120; S4990

== ENCOUNTER 2023-08-27 10:43 | Outpatient (CLI) | payer BC, MEDICARE, SELFPAY ==
--- OUTSIDE RECORDS SUMMARY | 2023-08-27 10:47 | XMS_ITS | Continuity of Care Document ---
Author Name Unknown Organization [facility] Address [address] [address] [place] [address] Phone Care Team Providers Care Immigration Attorney Name Role Phone Mervin Garcia MD Unavailable Unavailable Allergies, Adverse Reactions, Alerts Substance Reaction Status Criticality lactose Active No Information codeine sick Active No Information Medications Medication Instructions Dosage Effective Dates (start - stop) Status Comments Advil 200 mg tablet take 1 tablet by oral route 4 times every day with food 200 MG - Active omeprazole 40 mg capsule,delayed release take 1 capsule by ORAL route 3 times every day before a meal 40 MG - Active Zinc Plus 10 mg-1 mcg-13.3 mg lozenges take 1 tablet by oral route every day - Active multivitamin tablet take 1 tablet by oral route every day with food - Active bupropion HCl 75 mg tablet take 1 tablet by ORAL route 2 times every day 450 mg daily 75 MG - Active Aspir-81 mg tablet,delayed release take 1 tablet by oral route every day - Active loratadine 10 mg tablet take 1 tablet by oral route every day 10 MG - Active furosemide 20 mg tablet take 2 tablet by oral route every day 40 MG - Active Vitamin B-6 100 mg tablet take 1 tablet by oral route every day 1 tablet - Active Vitamin B-12 1,000 mcg tablet take 1 tablet by oral route every day 1 tablet - Active ondansetron 8 mg disintegrating tablet take 1 tablet by oral route every [address] on top of the tongue where it will dissolve, then swallow 8 MG - Active simvastatin 20 mg tablet take 1 tablet (20MG) by oral route every day in the evening 20 MG - Active gabapentin 800 mg tablet take 1 tablet (800MG) by oral route 4 times every day 800 MG - Active tramadol 50 mg tablet take 1 Tablet (50M G) by oral route every 6 hours as needed 50 MG - Active Procedures Procedure Date Init Inpt Cons New/est Mod-hi 2 Init Inpt Cons New/est Mod-hi 2 [facility]gi Endo; Dx W/wo Collec Specm 22 Breath Test Fructose Ugi Endo; W/bx 1/mx Level Iv-surg Path Gross/micro 19 Stool Kits Given Stool Kits Given Offic/outpt E&m New Mod-hi Offic/outpt E&m Estab Mod-hi 2 13 Offic Cons New/estab Mod Routine Serum Collection General Health Panel Advance Directives Directive Yes / No Effective Date File Name No Information Encounters Encounter Description Practice Location Reason(s) For Visit Diagnoses Date Provider Providers Copied on Encounter Init Inpt Cons New/est Mod-[facility], [address] [address], [place], [id number], [place] tel:[phone] [facility] No Information 2 Jose Jeffries. [address] [facility], [facility] [address], [place], [place], [id number], [place]. tel:[phone] Referring Provider: Kat De La Rosa, [address], [place], [address]. tel:[phone] Init Inpt Cons New/est Mod-hi [facility], [address] [address], [place], [id number], [place] tel:[phone] [facility] No Information 2 Davey Nye. [address] [place] [address], [id number], [place]. [phone] Referring Provider: Alexus Floyd MD, [address] [place] [address], [place], [address]. tel:[phone] [facility], [address] [address], [place], [id number], [place] tel:[phone] [facility] No Information 2 Jose E Liriano. [address] [place] [address], [id number], [place]. tel:[phone] Referring Provider: Heri Marroquin, [address] [place] [address], [place], [address] . tel:[phone] [facility], [address] [address], [place], [id number], [place] tel:[phone] [facility] Noninfective gastroenterit is and colitis, unspecified 0 9 Nikolai Ramos [address] [place] [address], [id number], [place]. [phone] [facility], [address] [address], [place], [id number], [place] tel:[phone] [facility] Anastomotic ulcerGastric polypS/P gastric bypassNausea with vomiting, unspecifiedDi arrhea, unspecifiedNa usea with vomiting, unspecifiedPo lyp of stomach and duodenumBaria tric surgery status 0 9 No Information Referring Provider: Referral Self, USE FOR SELF REFERRALS. [facility], [address] [address], [place], [id number], [place] tel:[phone] [facility] Noninfective gastroenterit is and colitis, unspecified 9 Nikolai Ramos [address], [id number], [place]. tel:[phone] Referring Provider: Referral Self, USE FOR SELF REFERRALS. Offic/outpt E&m New Mod-hi [facility], [address] [address], [place], [place], [id number], [place] tel:[phone] [facility] GI Symptoms or Concerns (chief complaint) Chronic nauseaChronic diarrheaEssen tial (primary) hypertension Sep-2 9 Nikolai Ramos [address], [id number], [place]. tel:[phone] Referring Provider: Alexus Floyd MD, [address] [place] [address], [address]. tel:[phone] Offic/outpt E&m Estab Mod-hi 2 [facility], [address] [address], [place], [place], [id number], [place] tel:[phone] [facility] Diarrhea (chief complaint) DiarrheaDiarr hea Sep-2 3 Edstrom AMELIA Buenrostro. [address] [address], [place], [place], [id number], [place]. tel:[phone] Referring Provider: Alexus Floyd MD, [address] [place] [address], [address]. tel:[phone] Offic Cons New/estab Mod [facility], [address] [address], [place], [place], [id number], [place] tel:[phone] [facility] Diarrhea (chief complaint) Diarrhea 3 Phil Hu. [address] [place] [address], [id number], [place]. tel:[phone] Referring Provider: Alexus Floyd MD, [address] [place] [address], [id number]. tel:[phone] Family History Family Member Type Diagnosis Age At Onset Mother Problem (finding) Thyroid disorder Father Problem (finding) alcoholism Mother Problem (finding) malignant neoplasm of l yesenia Mother Problem (finding) gallbladder disease Sister Problem (finding) malignant neop lasm of breast in first degree relative Mother Problem (finding) asthma Father Problem (finding) Cancer, unknown Father Problem (finding) Liver disease Payers Payer name Insurance type Covered green party ID [place] [employer] [place] [employer] [id number] Medicare NGS MB [id number] Social History Type Description Quantity Date Captured Comments Sex Female Smoking Status No Information Chief Complaint And Reason For Visit No Information Reason For Referral Reason For Referral No Information Plan Of Treatment Date Type Action Status Referral Ordered: EGD Appointment date/timeframe: 01/19/2019 ordered History Of Present Illness Encounter Date Complaint History Of Prese nt Illness GI Symptoms or Concerns Diamond valiente is a 58-year-old female whom I saw in clinic today in consultation for chronic nausea. Since September, she has had chronic nausea. She says as soon as she eats, she feels full up to her neck. She is nauseous after eating. She has only vomited once. She complains of fatigue and weight loss, but no fevers, chills, or malaise. She has bloating, excess flatulence, and diarrhea.She has had diarrhea since at least 2007. We saw her last in 2012 for her diarrhea. In the past, workup for her diarrhea has included colonoscopy with random biopsies, duodenal biopsies, TSH, CBC, testing for stool pathogens. Fructose and glucose breath testing were ordered in 2012 and were not done. She also had a CT enterography that was unrevealing. She reports Imodium does not work for her. I got a note from her primary care saying that she has abdominal pain. The patient currently denies having abdominal pain.Recent workup has included CT scan that was done on December 29, 2018. This Functional Status Date Functional Assessmen t No Information Instructions Date Instruction Additional Infor kenny 1. EGD.2. Fructose b reath testing. The patient refused small bowel bacterial overgrowth testing because she says she has been on antibiotics in the past and they have not helped her diarrhea.3. Offered to give her a prescription for cholestyramine for her diarrhea and she refused.4. Check pancreatic fecal elastase.5. Followup in 2 months.Thank you for allowing me to participate in the care of your patient. Please feel free to call with any questions or concerns. Related to Chronic nausea Assessments Type Assessment Date No Information Patient Care Teams Name Effective Dates (start - stop) Status Members No Information
--- OUTSIDE RECORDS SUMMARY | 2023-08-27 10:47 | XMS_ITS | Clinical Summary ---
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 Doxycycline Nausea And Vomiting,Stomach Upset 08/07/2022 Refuses to take. Medications Medication Sig Dispensed Refills Start Date End Date Status cholecalciferol, Vitamin D3, 5,000 unit tab tabletIndications:o steoporosis Take 1 tablet by mouth once daily. 0 0 Active cyanocobalamin (VITAMIN B12) 1,000 mcg tabletIndications:p revention of vitamin B12 deficiency Take 1 Tablet (1,000 mcg) by mouth once daily. 0 2 Active nitroglycerin (NITROSTAT) 0.4 mg sublingual tabletIndications:a cute episode of anginal pain Place 1 Tablet (0.4 mg) under the tongue every 5 minutes if needed for Chest Pain (For chest pain x 3. Hold if SBP less than 90 mmHg.). 25 Tablet 2 Active aspirin (ECOTRIN) 81 mg enteric coated tabletIndications:m yocardial infarction prevention Take 1 Tablet (81 mg) by mouth once daily with a meal. 100 Tablet 3 3 Active pantoprazole (PROTONIX) 40 mg delayed-release tabletIndications:d yspepsia Take 1 Tablet (40 mg) by mouth two times daily before meals. 180 Tablet 4 3 Active pyridoxine (VITAMIN B6) 50 mg tabletIndications:p yridoxine deficiency Take 1 Tablet (50 mg) by mouth once daily. 90 Tablet 3 3 Active clopidogreL (PLAVIX) 75 mg tabletIndications:c erebral thromboembolism prevention Take 1 Tablet (75 mg) by mouth every morning. 90 Tablet 3 3 Active buPROPion (WELLBUTRIN SR) 100 mg Sustained-Release tabletIndications:a nxiety with depression Take 1 Tablet (100 mg) by mouth two times daily. 180 Tablet 3 3 Active transmitter for continuous blood glucose monitor (CGM)Indications:Ty pe 1 diabetes mellitus with complication (HC) Change every 90 days 1 Each 3 4 Active ondansetron (ZOFRAN) 4 mg tabletIndications:N ausea TAKE 1 TABLET BY MOUTH EVERY 8 HOURS NEEDED FOR NAUSEA AND VOMITING 60 Tablet 4 Active durable medical equipment (DME)Indications:Fo llow-up examination after orthopedic surgery,Diabetic ulcer of left heel associated with type 1 diabetes mellitus, with bone involvement without evidence of necrosis (HC) PODEDUARDA ABREUOT, REGULAR, UNIVERSAL, REF: [phone] 4 Active Dexcom G6 Sensor for continuous blood glucose monitor (CGM)Indications:Ty pe 1 diabetes mellitus with stage 3b chronic kidney disease (HC) To be used to read blood sugars, follow green chain operator directions. Replace every 10 days. 9 Each 3 4 Active Dexcom G6 Transmitter for continuous blood glucose monitor (CGM)Indications:Ty pe 1 diabetes mellitus with stage 3b chronic kidney disease (HC) To be used to read blood sugars, follow green chain operator directions. Replace every 90 days. 1 Each 4 4 Active glucagon (Glucagon Emergency Kit, human,) 1 mg injectionIndication s:Type 1 diabetes mellitus with stage 3b chronic kidney disease (HC) Inject as directed. 2 Each 3 4 Active insulin aspart, U-100, (NovoLOG Flexpen U-100 Insulin) 100 unit/mL (3 mL) penIndications:Type 1 diabetes mellitus with stage 3b chronic kidney disease (HC) sliding scale every three hours. 1 unit for every 50 above a blood sugar of 150. using approx 30 units daily 9 mL 1 4 Active Insulin Des Arc, Disposable, (bd insulin pen needle uf mini) 31 gauge x 07/03Indications:Ty pe 1 diabetes mellitus with stage 3b chronic kidney disease (HC) for use at home three times daily 300 Each 4 Active insulin pump cart,automated,BT (Omnipod 5 G6 Pods, Gen 5,) crtgIndications:Typ e 1 diabetes mellitus with stage 3b chronic kidney disease (HC) Inject subcutaneous. Use to administer up to 65 units / day subcutaneously. Replace every 3 days. 30 Each 3 4 Active Lantus Solostar U-100 Insulin 100 unit/mL (3 mL) penIndications:Type 1 diabetes mellitus with stage 3b chronic kidney disease (HC) Product desired: LANTUS SOLOSTAR. OK to substitute other long acting insulin better covered by pt's insurance. In the event of pump failure, administer 3 units / day subcutaneously 3 mL 3 4 Active atorvastatin (LIPITOR) 80 mg tabletIndications:m ixed hyperlipidemia Take 1 Tablet (80 mg) by mouth at bedtime. 90 Tablet 3 4 Active insulin aspart U-100 (NovoLOG U-100 Insulin aspart) 100 unit/mL injectionIndication s:type 1 diabetes mellitus Infuse subcutaneously via insulin pump. Administer up to 65 units / day. If using with injections instead of pump, administer 1 unit for every 80 points greater than 150 mg/dL, and administer 1 unit for every 10 grams of carbohydrate 3 times daily. Max daily dose 65 units 20 mL 11 4 Active torsemide (DEMADEX) 20 mg tabletIndications:P edal edema Take 2 Tablets (40 mg) by mouth once daily. 120 Tablet 4 Active metOLazone (ZAROXOLYN) 5 mg tabletIndications:N ew onset of congestive heart failure (HC),Stage 3 chronic kidney disease, unspecified whether stage 3a or 3b CKD (HC) Take 1 Tablet (5 mg) by mouth every morning. 5 Tablet 1 4 Active oxyCODONE 10 mg tabletIndications:D iabetic ulcer of left heel associated with type 2 diabetes mellitus, limited to breakdown of skin (HC) take 1 tablet by mouth every 8 hrs PRN. Maximum of 3 tablets daily 60 Tablet 4 Active torsemide (DEMADEX) 20 mg tabletIndications:P edal edema Take 2 Tablets (40 mg) by mouth once daily. Take 1 extra tablet at noon on odd days for 2 weeks from02/04/2023 180 Tablet 1 3 08/13/19 24 Discontinu ed(Reorder (E-cancel not sent)) oxyCODONE 10 mg tabletIndications:D iabetic ulcer of left heel associated with type 2 diabetes mellitus, limited to breakdown of skin (HC) take 1 tablet by mouth every 8 hrs PRN. Maximum of 3 tablets daily 60 Tablet 4 08/21/19 24 Discontinu ed(Reorder (E-cancel not sent)) Active Problems Problem Noted Date Diagnosed Date Other complications of amputation stump 08/20/19 Moderate protein-calorie malnutrition 08/20/2023 Other acute osteomyelitis, left ankle and foot 0 08/20/2023 Depression, major, single episode, moderate 05/2023 History of partial ray amput ation of third toe of right foot 11/27/2022 S/P ORIF (open reduction internal fixation) frac ture 11/12/2022 Diabetic ulcer of left foot associated with type 2 diabetes mellitus, limited to breakdown of skin 10/06/2022 Acute on chronic anemia 10/01/2022 Fall 10/01/2022 Hematoma 10/01/2022 PAD (peripheral artery disease) 10/01/2022 Personality disorder 05/27/2022 Last Assessment & Plan: chart update only Anemia due to acute blood loss 05/27/2022 Upper GI bleed 05/27/2022 Acute gastric ulcer with hemorrhage 05/27/2022 Perforated Starr-en-Y gastric bypass limb 022 Multiple subsegmental pulmon sean emboli without acute cor pulmonale 02/25/2022 Hematochezia 02/25/2022 CVA (cerebral vascular accident) 12/31/2021 Anastomotic ulcer S/P gastric bypass 12/20/2021 Overview: Severe GI bleed evaluated at [facility] in 2015. Second GI bleed evaluated at [facility] 2021. Alexus Floyd D.O. 12/20/2021 12:45 PM Rectal bleed 12/17/2021 Diabetic ulcer of calf assoc iated with diabetes mellitus due to underlying condition 03/06/2021 Stage 3b chronic kidney disease 09/12/2020 Overview: ++microalbuminuria Iron deficiency 08/16/2020 Anemia, unspecified 08/16/2020 Malabsorption due to disorder of pancreas 2020 Steatorrhea, pancreatic 12/30/2018 Essential hypertension 05/05/2018 Mixed diabetic hyperlipidemi a associated with type 1 diabetes mellitus 05/05/2018 H/O gastric bypass 07/26/2016 Atherosclerosis of marshall co ronary artery of marshall heart without angina pectoris 07/16/[address] 05/05/2013 Overview: OmniPod Pump settings : [place] 0.05 units/hr, 4am 0.25 units/hr, 7am 3 units/hr, 3pm 3 units/hr, 5:0 pm 3 units/hr, 7pm 1.45 I:C Ratio:MN 1 unit per 10 grams of carbohydrate 6AM 1:7, noon 1:15. Insulin Sensitivity: 80 mg/dl. Target Blood Glucose: 110-130 . Active Insulin: 4 hours Neurogenic bowel 04/05/2013 Controlled substance agreement signed 12/24/2012 Diabetic polyneuropathy asso ciated with type 1 diabetes mellitus 09/30/2012 Type 1 diabetes mellitus wit h stage 3b chronic kidney disease 09/30/2012 Overview: Diagnosed at age 42. Diet/exercise and Metformin until 2007 with very poor control. Insulin since 2007. Peripheral neuropathy (numbness), microalbuminuria and renal insufficiency 11/2012: C.Peptide < 0.1 Tobacco abuse Resolved Problems Problem Noted Date Diagnosed Date Resolved Date Diabetic ulcer of left heel associated with type 2 diabetes mellitus, with bone involvement without evidence of necrosis 05/20/2023 06/09/2023 Stage 4 chronic kidney disease 12/23/2022 06/09/2023 Type 2 diabetes mellitus wit h right diabetic foot infection 10/06/2022 12/23/2022 TITUS (acute kidney injury) 10/01/2022 Other fracture of right femu r, initial encounter for closed fracture 10/01/2022 06/09/2023 Stage 4 chronic kidney disease 06/29/2022 12/23/2022 Last Assessment & Plan: stable, but improved at last evaluation to ckd3 Acute colitis 02/25/2022 06/09/2023 COVID-19 virus infection 02/25/2022 Anemia 08/16/2020 12/03/2021 Elevated amylase 12/30/2018 03/07/2020 Abdominal pain with vomiting 12/30/2018 03/07/2020 Fecal soiling due to fecal incontinence 11/05/2017 01/20/2018 Diabetic ketoacidosis withou t coma associated with type 1 diabetes mellitus 07/26/2016 03/07/2020 Hyperlipidemia 04/24/2015 05/05/2018 Hyperlipidemia LDL goal <100 12/14/2012 04/05/2014 HTN (hypertension) 09/30/2012 9 Pneumonia, organism unspecified(486) 09/05/2011 12/14/2012 Hypoglycemia associated with diabetes 09/05/2011 12/14/2012 Abnormal cardiovascular stress test 03/07/2020 Overview: -Lexiscan myoview 03/29/14: Medium-sized area of moderate ischemia anterior wall and apex. EF 53%. Cholelithiasis 06/09/2023 Overview: -per 08/17/13 abdominal US Diabetic foot infection 05/22 Diabetic ulcer of heel assoc iated with diabetes mellitus due to underlying condition, with fat layer exposed 2023 Stage 3b chronic kidney disease (CKD) 12/23/2022 Encounters Date Type Department Care Team Description 08/26/2023 3:05 PM CDT Office Visit [facility] [address] [facility] [place] [address] Alexus Floyd DO Edema; Serious Illness Conversation 08/26/2023 Travel 08/24/2023 Telephone [facility] [address] [facility] [address] Alexus Floyd DO Questions (oxyCODONE 10 mg tablet) 08/21/2023 3:05 PM CDT Phone Office Visit [facility] [address] [place] [address] Alexus Floyd DO Results (discuss results) 08/21/2023 Travel 08/20/2023 3:15 PM CDT Office Visit [facility] [address] [place] [address] Venkatesh Krishna DPM Ulcer (Follow up-left foot) 08/20/2023 2:30 PM CDT Orders Only [facility] [address] [facility] [place] [address] Lab, [facility] 08/19/2023 1:30 PM CDT Ancillary Procedure [facility] [address] [place] [address] 08/19/2023 10:40 AM CDT Office Visit [facility] [address] [place] [address] Alexus Floyd DO Leg Swelling (last week- comes and goes) 08/19/2023 Travel 08/17/2023 Telephone [facility] [address] [place] [address] Alexus Floyd DO Appointment 08/13/2023 3:15 PM CDT Office Visit [facility] [place] [address] [place] [phone] Venkatesh Krishna DPM Ulcer (Follow up-left heel) 08/13/2023 Travel 08/13/2023 Refill [facility] [address] [place] [address] Alexus Floyd DO Refill Request (Toresemide 20mg tab ) 08/12/2023 Telephone [facility] [address] [place] [address] Alexus Floyd DO Form (Jury Duty) 08/10/2023 Refill [facility] [address] [place] [address] Alexus Floyd, DO Refill Request (OXYCODONE 10MG TAB) 08/10/2023 Telephone [facility] [address] [place] [address] [address] Alexus Floyd, DO Questions 08/06/2023 3:15 PM CDT Office Visit [facility] [address] [place] [address] Venkatesh Krishna R, DPM Ulcer (Follow up-left heel ) 08/06/2023 Travel 07/30/2023 3:00 PM CDT Office Visit [facility] [address] [place] [address] SteGary carrillont R, DPM Ulcer (Follow up-left heel) 07/30/2023 Travel 07/23/2023 3:00 PM CDT Office Visit [facility] [address] [place] [address] Venkatesh Krishna R, DPM Ulcer (Follow up-left heel) 07/23/2023 Travel 07/21/2023 3:30 PM CDT Nurse/Clinic Staff Only [address] [place] [address] Dressing Change 07/21/2023 Travel 07/16/2023 2:30 PM CDT Nurse/Clinic Staff Only [address] [place] [address] Dressing Change 07/16/2023 Travel 07/09/2023 3:15 PM CDT Office Visit [facility] [address] [place] [address] Venkatesh Krishna R, DPM Ulcer (Follow up-left heel) 07/09/2023 Travel 07/02/2023 3:45 PM CDT Office Visit [facility] [address] [place] [phone] Erendira Venkatesh R, DPM Ulcer (Follow up-left heel) 07/02/2023 Travel 06/26/2023 Telephone [facility] [address] [place] [address] Alexus Floyd, Questions (health care/) 06/25/2023 3:45 PM [facility] Office Visit [facility] [address] [place] [phone] Steenmelissa Venkatesh R, DPM Post-op (Left heel, DOS 04/27/23, 8 weeks post op); Follow Up (Graft #4) 06/25/2023 Travel 06/18/2023 3:45 PM [facility] Office Visit [facility] [address] [place] [address] Stelorena Venkatesh R, DPM Post-op (Left heel, 04/27/23, 7 weeks post op); Follow Up (Graft #3) 06/18/2023 Travel 06/11/2023 3:00 PM [facility] Office Visit [facility] [address] [place] [address] Steenmelissa Venkatesh R, DPM Post-op (Left heel, DOS 04/27/23, 6 weeks post op); Follow Up (Graft #2) 06/11/2023 Travel 06/10/2023 Telephone [facility] [address] [facility] [address] [place] [address] Monico Phoenix DO Follow Up (DISCUSSION) 06/09/2023 3:30 PM [facility] Office Visit [facility] [address] [facility] [address] [place] [address] Monico Phoenix DO Consult (Diabetes) 06/09/2023 Travel 06/04/2023 3:45 PM [facility]NER Office Visit [facility] [place] [address] [facility] [address] [place] [phone] Venkatesh Krishna, DPM Post-op (Left heel, DOS 04/27/23, 5 weeks post op); Follow Up (AmnioExcel graft application #1) 06/04/2023 Travel 06/01/2023 Telephone [facility] [address] [facility] [address] [place] [address] Jesu Mccormack MD 06/01/2023 Telephone [facility] [address] [facility] [address] [place] [address] Jesu Mccormack MD Questions (High blood sugar) 05/29/2023 Telephone [facility] [address] [place] [address] Alexus Floyd DO Concerns from Last 3 Months Immunizations Name Administration Dates Next Due COVID-19 Vaccine Spikevax (M oderna 50mcg/0.5mL) 12YO+ 2282-3723 Formula PF 02/04/2023 COVID-19 vaccine (Pfizer-Bio NTech 30mcg/0.3mL) 12YO+ BIVALENT PF, MDV 04/08/2022 COVID-19 vaccine (Pfizer-Bio NTech 30mcg/0.3mL) PF, MDV 08/10/2020,07/21/2020 Influenza A (H1N1), Inactivated 03/20/2009 Influenza RIV4 (Age 18+ Year s) PRESERV FREE 12/31/2019 Influenza Virus, Unspecified 04/06/2022,01/16/20 12,01/14/2010 Influenza, High-dose Inactivated 12/23/2017 Influenza, IIV3 (Age >=3 years) 02/15/20 13,01/16/2012,01/27/2011,2008,02/04/2007,02/10/2006 Influenza, IIV4 12/31/2022, 2,04/06/2022(Deferr ed: - given on days),01/01/2021,03/27/2019,02/18/2018, 01/17/2017,01/14/2016,01/03/2015 Tdap 01/16/2012 Zoster (Zostavax-ZVL, live) 01/03/2015 Family History Medical History Relation Name Comments Heart Disease Mother chf Thyroid Disease Mother Relation Name Status Comments Mother Social History Tobacco Use Types Packs/Day Years Used Date Smoking Tobacco: Former Cigarettes Smokeless Tobacco: Never Tobacco Cessation:Counseling Given: Yes Comments:quit November of 2021 Alcohol Use Standard Drinks/Week Comments No 0 (1 standard drink = 0.6 oz pur e alcohol) PHQ-2 Answer Date Recorded PHQ-2 TOTAL SCORE 3 07/30/2022 Social Connections Answer Date Recorded Frequency of Communication with Friends and Fami ly Not on file 04/11/2021 Financial Resource Strain Answer Date R ecorded Difficulty of Paying Living Expenses 1 04/03/2023 Difficulty of Paying Living Expenses 1 04/03/2023 Food Insecurity Answer Date Recorded Worried About Running Out of Food in the Last Ye ar 1 04/03/2023 Transportation Needs Answer Date Record ed Lack of Transportation (Medical) 2 04/03/2023 Housing Stability Answer Date Recorded Unable to Pay for Housing in the Last Year 1 04/03/2023 Sex and Gender Information Value Date Recorded Sex Assigned at Not on file Gender Identity Not on file Sexual Orientation Not on file Obstetrics History Para Term AB IAB SAB Ectopic Multiple Livin g Live Births 1 Date Outcome GA Total Labor Labor/2nd/3rd Weight Sex Delivery Anes PTL Kaylin A1 A5 Name Cl in Last Filed Vital Signs Vital Sign Reading Time Taken Comments Blood Pressure 176/94 08/26/2023 3:00 PM CDT Pulse 71 08/26/2023 3:00 PM CDT Temperature 36.6 ??C (97.9 ??F) 08/13/2023 3:27 PM CD T Respiratory Rate 16 04/27/2023 10:15 AM [facility] Oxygen Saturation 97% 08/26/2023 3:00 PM CDT Inhaled Oxygen Concentration - - Weight 59.4 kg (131 lb) 08/26/2023 3:00 PM CDT Height 170.2 cm (5' 7) 04/27/2023 6:49 AM [facility] Body Mass Index 20.52 04/27/2023 6:49 AM [facility]NER Plan of Treatment Upcoming Encounters Date Type Department Care Team (Late st Contact Info) Description 08/27/2023 11:00 AM CDT Ancillary Procedure [facility] [address] [facility] [place] [address] 08/27/2023 3:30 PM CDT Office Visit [facility] [address] [place] [phone] Venkatesh Krishna DPM [address] [place] [address] 09/03/2023 3:30 PM CDT Office Visit [facility] [address] [place] [phone] Venkatesh Krishna DPM [address] [place] [address] 09/10/2023 3:15 PM CDT Office Visit [facility] [address] [place] [phone] Venkatesh Krishna DPM [address] [place] [address] 09/24/2023 3:30 PM CDT Office Visit [facility] [address] [place] [phone] Venkatesh Krishna DPM [address] [place] [address] 10/01/2023 3:30 PM CDT Office Visit [facility] [address] [place] [phone] Venkatesh Krishna DPM [address] [place] [address] 10/08/2023 3:30 PM CDT Office Visit [facility] [place] [address] [place] [phone] Venkatesh Krishna DPAnne Marie [address] [place] [address] 10/09/2023 4:20 PM CDT Office Visit [facility] [address] [place] [address] Alexus Floyd DO [address] [place] [address] 10/15/2023 3:15 PM CDT Office Visit [facility] [place] [address] [place] [phone] Venkatesh Krishna DPM [address] [place] [address] 10/29/2023 3:30 PM CDT Office Visit [facility] [place] [address] [place] [phone] Venkatesh Krishna DPM [address] [place] [address] 11/05/2023 3:30 PM CDT Office Visit [facility] [address] [place] [phone] Venkatesh Krishna DPM [address] [place] [address] 11/12/2023 3:30 PM CDT Office Visit [facility] [place] [address] [place] [phone] Venkatesh Krishna, DPM [address] [place] [address] 12/11/2023 3:55 PM CDT Office Visit [facility] [address] [place], [place] [id number] Abid, Kaychristen Mayte, DO [address] [place], [place] [id number] Health Maintenance Due Date Last Done Comments Pneumococcal series for age 6-64 (1 of 2 - PCV) 1964 HIV for age 15-65 1973 Hepatitis C screening for ag e 18-79 1976 Pap test for age 21-65 10/27/1979 Mammogram for age 45-75 10/27/2003 Zoster (shingles) series for age 50+ (2 of 3) 02/28/2015 01/03/2015 Tetanus booster 01/15/2022 01/16/2012 Depression screening for age 12+ 08/02/2023 08/01/2022, 08/01/2022, 07/31/2022, Additional history exists Influenza for age 50-64 12/20/2023 01/01/20, 04/06/2022, 04/06/2022, Additional history exists BMI (ht and wt on same day) for age 18+ 03/06/2024 03/06/2023, 12/23/2022, 01/15/2022, Additional history exists Colonoscopy through age 75 08/16/202508/16, 09/01/2012 (Completed outside of [facility]) Lipids for age 45-75 06/09/2028 06/09/2023, 01/01/2022, 01/01/2021, Additional history exists Tdap Completed 01/16/2012 COVID-19 vaccine series Completed 02/05/20, 04/08/2022, 02/10/2021, Additional history exists Goals Goal Patient Goal Type Associated Problems Recent Progress Patient-Stated? Author DIABETES-Hg bA1C GOAL LESS THAN 8 Result Component No Detert, Alexus Argueta, DO Medical Devices Implanted Type Area Field Servicer Device Identifier Shelf Expiration Date Model / Serial / Lot Plate Fem Rt 343mm 16 Hole Axsos3 Distal Lat - [id number] Implanted:Qty: 1 on 10/02/2022 by Tristin Page MD at [facility] Right: Femur [employer] [id number] / / Screw Sm Joint 5x46mm Axsos Lock - [id number] Implanted:Qty: 2 on 10/02/2022 by Tristin Page MD at [facility] Right: Femur [employer] [id number] / / Screw Sm Joint 4.5x48mm Axsos Michael Titnm - [id number] Implanted:Qty: 1 on 10/02/2022 by Tristin Page MD at [facility] Right: Femur [employer] [id number] / / Screw Sm Joint 4.5x36mm Axsos Michael Titnm - [id number] Implanted:Qty: 1 on 10/02/2022 by Tristin Page MD at [facility] Right: Femur [employer] [id number] / / Screw Sm Joint 5x70mm Axsos Lock - [id number] Implanted:Qty: 2 on 10/02/2022 by Tristin Page MD at [facility] Right: Femur [employer] [id number] / / Screw Sm Joint 5x65mm Axsos Lock - [id number] Implanted:Qty: 1 on 10/02/2022 by Tristin Page MD at [facility] Right: Femur [employer] [id number] / / Screw Sm Joint 5x75mm Axsos Lock - [id number] Implanted:Qty: 2 on 10/02/2022 by Tristin Page MD at [facility] Right: Femur [employer] [id number] / / Screw Sm Joint 5x80mm Axsos Lock - [id number] Implanted:Qty: 2 on 10/02/2022 by Tristin Page MD at [facility] Right: Femur [employer] [id number] / / Screw Sm Joint 4.5x40mm Axsos Michael Titnm - [id number] Implanted:Qty: 1 on 10/02/2022 by Tristin Page MD at [facility] Right: Femur [employer] [id number] / / Screw Sm Joint 5x38mm Axsos Lock - [id number] Implanted:Qty: 2 on 10/02/2022 by Tristin Page MD at [facility] Right: Femur [employer] [id number] / / Micromatrix - [id number] Implanted:Qty: 1 on 04/27/2023 by Venkatesh Krishna DPM at [facility] Left: Foot [employer] 09/17/2024 [id number] / / [id number] Description:Left heel Cytal Wound Matrix 6-Layer - [id number] Implanted:Qty: 1 on 04/27/2023 by Venkatesh Krishna DPM at [facility] Left: Foot [employer] 09/17/2024 [id number] / / [id number] Explanted Type Area Field Servicer Device Identifier Shelf Expiration Date Model / Serial / Lot K-Wire Drill Tip [id number] - [id number] Explanted:Qty: 3 on 10/02/2022 by Tristin Page MD at [facility] Right: [employer] [id number] / / Procedures Procedure Name Priority Date/Time Associated Diagnosis Comments COMP METABOLIC PANEL STAT 08/20/2023 5:15 PM CDT Severe generalized edema PRO-BNP Routine 08/20/2023 5:15 PM CDT Severe generalized edema CBC WITH AUTO DIFFERENTIAL Routine 08/20/2023 4:55 PM CDT Severe generalized edema CORTISOL TOTAL Routine 08/20/2023 4:55 PM CDT Severe generalized edema CBC WITH AUTO DIFFERENTIAL Routine 08/20/2023 4:55 PM CDT Severe generalized edema CT CHEST ABDOMEN PELVIS WO STAT 08/19/2023 12:26 PM CDT Severe generalized edema Stage 3 chronic kidney disease, unspecified whether stage 3a or 3b CKD (HC) LIPID PANEL W REFLEX MEASURED LDL Routine 06/09/2023 2:50 PM [facility] Mixed diabetic hyperlipidemia associated with type 1 diabetes mellitus (HC) HEMOGLOBIN A1C Routine 06/09/2023 2:50 PM [facility] Type 1 diabetes mellitus with stage 3b chronic kidney disease (HC) Insulin pump in place Diabetic polyneuropathy associated with type 1 diabetes mellitus (HC) SCAN-COLONOSCOPY 08/17/2015 12:0 0 AM CDT from Last 3 Months or Most Recently Relevant to Health Maintenance Results * (ABNORMAL) PRO-BNP (08/20/2023 5:15 PM CDT) PRO-BNP 23,863(H) <125 pg/mL 08/20/2023 6:05 PM CDT [facility] Blood BLOOD SPECIMEN / Unknown Butterfly / Unknown 08/20/2023 5:15 PM CDT 08/20/2023 5:15 PM CDT [facility] - 08/20/2023 6:05 PM CDT The following cut-points have been suggested for the use of proBNP for the diagnostic evaluation of heart failure (HF) in patient with acute dyspnea. Patients with eGFR >= 60 Diagnosis (rule in CHF) ? <50 Years Old ?450 pg/mL 50 - 75 Years Old ?900 pg/mL >75 Years Old ? 1800 pg/mL Exclusion (rule out CHF) Age Independent ?300 pg/mL A cutoff of 1200 pg/mL for patients with an eGFR <60 yields a diagnostic sensitivity of 89% and specificity of 72% for acute congestive heart failure. ? Alexus Argueta Everett DO SEND OUTS [facility] [address] [place] [address] * (ABNORMAL) COMP METABOLIC PANEL (08/20/2023 5:15 PM T) SODIUM 141 136 - 145 mmol/L 08/20/2023 6:02 PM [facility] POTASSIUM 4.9 3.5 - 5.1 mmol/L 08/20/2023 6:02 PM [facility] CHLORIDE 111(H) 98 - 107 mmol/L 08/20/2023 6:02 PM [facility] CO2,TOTAL 23 22 - 29 mmol/L 08/20/2023 6:02 PM [facility] ANION GAP 7 5 - 18 08/20/2023 6:02 PM [facility] GLUCOSE 115(H) 70 - 99 mg/dL 08/20/2023 6:02 PM [facility] CALCIUM 7.7(L) 8.8 - 10.2 mg/dL 08/20/2023 6:02 PM [facility] BUN 36(H) 8 - 23 mg/dL 08/20/2023 6:02 PM [facility] CREATININE 1.51(H) 0.50 - 0.90 mg/dL 08/20/2023 6:02 PM [facility] BUN/CREAT RATIO 24(H) 10 - 20 6:02 PM [facility] eGFR 38(L) >90 mL/min/1.7 3m2 08/20/2023 6:02 PM CDT [facility] Comment:As of 2021, eG FR is calculated by the CKD-EPI creatinine equation without race adjustment. ??eGFR can be influenced by muscle mass, exercise, and diet. ??The reported eGFR is an estimation only and is only applicable if the renal function is stable. ALBUMIN 2.2(L) 4.0 - 4.9 g/dL 08/20/2023 6:02 PM CDT [facility] PROTEIN,TOTAL 5.0(L) 6.0 - 8.0 g/dL 08/20/2023 6:02 PM T [facility] BILIRUBIN,TOTAL 0.3 0.0 - 1.2 mg/dL 08/20/2023 6:02 PM T [facility] ALK PHOSPHATASE 191(H) 35 - 104 IU/L 08/20/2023 6:02 PM CDT [facility] ALT (SGPT) 24 10 - 35 IU/L 08/20/2023 6:02 PM T [facility] AST (SGOT) 56(H) 10 - 35 IU/L 08/20/2023 6:02 PM CDT [facility] Blood BLOOD SPECIMEN / Unknown Butterfly / Unknown 08/20/2023 5:15 PM CDT 08/20/2023 5:15 PM CDT Alexus Floyd DO CHEMISTRY [facility] [address] [place] [address] * CORTISOL TOTAL (08/20/2023 4:55 PM CDT) CORTISOL,TOTAL 10.7 ug/dL 08/21/2023 12:53 PM CDT [facility] Blood BLOOD SPECIMEN / Unknown Butterfly / Unknown 08/20/2023 4:55 PM CDT 08/20/2023 5:03 PM CDT Narrative [facility] - 08/21/2023 12:53 PM CDT Cortisol ?Morning Hours ?6:00 ??AM - 10:00 AM ?(4.8-19.5 ug/dL) Cortisol ?Afternoon Hours ??4:00 ??PM - ??8:00 PM ?(2.5-11.9 ug/dL) ? Biotin supplements may cause clinically significant interference for this test assay. ??If interference is suspected, it is strongly recommended that biotin is discontinued for at least one week prior to retesting. Alexus Floyd DO CHEMISTRY [facility] [address] [place] [address], * (ABNORMAL) CBC WITH AUTO DIFFERENTIAL (08/20/2023 4:55 PM T) Pathologist [facility] WHITE BLOOD COUNT 6.5 4.5 - 11.0 thou/cu mm 08/20/2023 6:38 PM [facility] RED BLOOD COUNT 3.69(L) 4.00 - 5.20 mil/cu mm 08/20/2023 6:38 PM [facility] HEMOGLOBIN 11.6(L) 12.0 - 16.0 g/dL 08/20/2023 6:38 PM [facility] HEMATOCRIT 36.3 33.0 - 51.0 % 08/20/2023 6:38 PM [facility] MCV 98 80 - 100 fL 08/20/2023 6:38 PM [facility] MCH 31.4 26.0 - 34.0 pg 08/20/2023 6:38 PM [facility] MCHC 32.0 32.0 - 36.0 g/dL 08/20/2023 6:38 PM [facility] RDW 22.2(H) 11.5 - 15.5 % 08/20/2023 6:38 PM [facility] PLATELET COUNT 346 140 - 440 thou/cu mm 08/20/2023 6:38 PM [facility] MPV 9.8 6.5 - 11.0 fL 08/20/2023 6:38 PM CDT [facility] % NEUT 60.8 % 08/20/2023 6:38 PM CDT [facility] % LYMPH 30.9 % 08/20/2023 6:38 PM CDT [facility] % MONO 6.0 % 08/20/2023 6:38 PM CDT [facility] % EOS 0.9 % 08/20/2023 6:38 PM T [facility] % BASO 1.4 % 08/20/2023 6:38 PM T [facility] ABSOLUTE NEUTROPHILS 4.0 1.7 - 7.0 thou/cu mm 08/20/2023 6:38 PM CDT [facility] ABSOLUTE LYMPHOCYTES 2.0 0.9 - 2.9 thou/cu mm 08/20/2023 6:38 PM T [facility] ABSOLUTE MONOCYTES 0.4 <0.9 thou/cu mm 08/20/2023 6:38 PM CDT [facility] ABSOLUTE EOSINOPHILS 0.1 <0.5 thou/cu mm 08/20/2023 6:38 PM T [facility] ABSOLUTE BASOPHILS 0.1 <0.3 thou/cu mm 08/20/2023 6:38 PM CDT [facility] Blood BLOOD SPECIMEN / Unknown Butterfly / Unknown 08/20/2023 4:55 PM CDT 08/20/2023 5:03 PM CDT [facility] - 08/20/2023 6:38 PM CDT This procedure was originally ordered at [facility]. Alexus Floyd DO HEMATOLOGY [facility] [address] [place] [address] * CT CHEST ABDOMEN PELVIS WO (08/19/2023 12:26 PM CDT) Anatomical Region Laterality Modality Abdomen, Pelvis, AORTA, LIVER, SPLEEN, CHEST Computed Tomography 08/19/2023 12:5 6 PM CDT Impressions 08/19/2023 12:56 PM CDT 1. Diffuse body wall edema, bilateral pleural effusions and abdominopelvic ascites consistent with anasarca. 2. Incidental findings described above. The study is performed without intravenous contrast. ??This limits the sensitivity of the exam for the detection bowel pathology, focal lesions of the abdominopelvic viscera and vascular pathology including significant vascular stenosis, occlusion and dissection. Please note that all CT scans at this facility use dose modulation, iterative reconstruction, and/or weight-based dosing when appropriate to reduce radiation dose to as low as reasonably achievable. Dictated by Brayan Brandt MD @ 08/19/2023 12:56:40 PM (Electronically Signed) Narrative 08/19/2023 12:56 PM CDT For Patients: ??As a result of the Cures Act, medical imaging exams and procedure reports are released immediately into your electronic medical record. ??You may view this report before your referring provider. ??If you have questions, please contact your health care provider. INDICATION: R60.1 Severe generalized edema ICD-10-CM Severe generalized edema N18.30 Stage 3 chronic kidney disease, unspecified whether stage 3a or 3b CKD (HC) ICD-10-CM Stage 3 chronic kidney disease, unspecif Severe generalized edemageneralized severe edema? ascites (Sic) COMPARISON: 03/20/2022, 12/29/2018 TECHNIQUE: CT of the chest, abdomen and pelvis without intravenous contrast. ?? Please note that all CT scans at this facility use dose modulation, iterative reconstruction, and/or weight-based dosing when appropriate to reduce radiation dose to as low as reasonably achievable. FINDINGS: The study is performed without intravenous contrast. ??This limits the sensitivity of the exam for the detection bowel pathology, focal lesions of the abdominopelvic viscera and vascular pathology including significant vascular stenosis, occlusion and dissection. CHEST Visualized Lower Neck: No lower cervical adenopathy. Mediastinum: Thoracic aorta and pulmonary trunk are normal in caliber. Severe multivessel atherosclerotic coronary artery calcifications. Left ventricular enlargement. Trachea and esophagus are normal in appearance. There is no mediastinal lymphadenopathy. Lungs and Pleura: No significant pulmonary findings. Moderate symmetrical bilateral low-density pleural effusions, left larger than right. No pneumothorax. ABDOMEN Liver: Normal hepatic attenuation. ??No suspicious focal hepatic lesion. No intrahepatic biliary ductal dilatation. Gallbladder: Surgically absent. Normal common duct caliber. No pericholecystic inflammatory changes. Pancreas: Pancreatic head cluster calcifications consistent with chronic pancreatitis. No focal lesion. Normal duct caliber. No peripancreatic inflammatory changes. Spleen: Normal splenic attenuation. No suspicious focal lesion. Adrenal Glands: Symmetrical adrenal glands. No focal lesion of significance. Kidneys: Normal bilateral renal attenuation. No suspicious focal lesion. Nonobstructing right lower pole nephrolithiasis. No obstructing nephrolith or dilatation of the intrarenal collecting systems. Gastrointestinal tract: Starr-en-Y gastric bypass. No inflammatory changes. Possible nonspecific submucosal edema of the remnant gastric body and gastric antrum, of undetermined clinical significance. Correlation with the patient`s clinical status is recommended as to the potential significance of this imaging finding. Unidentified appendix. Vascular: Severe aortoiliac atherosclerotic mural calcifications. Normal outer wall to outer wall abdominal aortic caliber. Partially imaged bilateral superficial femoral artery stents. Patency and luminal caliber of the abdominopelvic arterial and venous vasculature cannot be assessed on this noncontrast study. Additional findings: Moderate ascites. No incidental adenopathy. No evidence of pneumoperitoneum. ? PELVIS No bladder lesion is identified. No significant incidental findings related to the uterus and uterine adnexae. Moderate ascites. No incidental adenopathy. SKELETON AND BODY WALL Diffuse body wall edema consistent with anasarca. Incompletely imaged plate and screw fixation of the right femoral diaphysis. Procedure Note Brayan Brandt MD - 08/19/2023 For Patients: As a result of the Century Cures Act, medical imagingexams and procedure reports are released immediately into your electronicmedical record. You may view this report before your referring provider.If you have questions, please contact your health care provider. INDICATION: R60.1 Severe generalized edema ICD-10-CM Severe generalized edema N18.30 Stage 3 chronic kidney disease, unspecified whether stage 3a or 3bCKD (HC) ICD-10-CM Stage 3 chronic kidney disease, unspecif Severe generalized edemageneralized severe edema? ascites (Sic) COMPARISON: 03/20/2022, 12/29/2018 TECHNIQUE: CT of the chest, abdomen and pelvis without intravenous contrast. Pleasenote that all CT scans at this facility use dose modulation, iterativereconstruction, and/or weight-based dosing when appropriate to reduceradiation dose to as low as reasonably achievable. FINDINGS: The study is performed without intravenous contrast. This limits thesensitivity of the exam for the detection bowel pathology, focal lesionsof the abdominopelvic viscera and vascular pathology including significantvascular stenosis, occlusion and dissection. CHEST Visualized Lower Neck: No lower cervical adenopathy. Mediastinum: Thoracic aorta and pulmonary trunk are normal in caliber.Severe multivessel atherosclerotic coronary artery calcifications. Leftventricular enlargement. Trachea and esophagus are normal in appearance.There is no mediastinal lymphadenopathy. Lungs and Pleura: No significant pulmonary findings. Moderate symmetricalbilateral low-density pleural effusions, left larger than right. Nopneumothorax. ABDOMEN Liver: Normal hepatic attenuation. No suspicious focal hepatic lesion. Nointrahepatic biliary ductal dilatation. Gallbladder: Surgically absent. Normal common duct caliber. Nopericholecystic inflammatory changes. Pancreas: Pancreatic head cluster calcifications consistent with chronicpancreatitis. No focal lesion. Normal duct caliber. No peripancreaticinflammatory changes. Spleen: Normal splenic attenuation. No suspicious focal lesion. Adrenal Glands: Symmetrical adrenal glands. No focal lesion ofsignificance. Kidneys: Normal bilateral renal attenuation. No suspicious focal lesion.Nonobstructing right lower pole nephrolithiasis. No obstructing nephrolithor dilatation of the intrarenal collecting systems. Gastrointestinal tract: Starr-en-Y gastric bypass. No inflammatory changes.Possible nonspecific submucosal edema of the remnant gastric body andgastric antrum, of undetermined clinical significance. Correlation withthe patient`s clinical status is recommended as to the potentialsignificance of this imaging finding. Unidentified appendix. Vascular: Severe aortoiliac atherosclerotic mural calcifications. Normalouter wall to outer wall abdominal aortic caliber. Partially imagedbilateral superficial femoral artery stents. Patency and luminal caliberof the abdominopelvic arterial and venous vasculature cannot be assessedon this noncontrast study. Additional findings: Moderate ascites. No incidental adenopathy. Noevidence of pneumoperitoneum. PELVIS No bladder lesion is identified. No significant incidental findingsrelated to the uterus and uterine adnexae. Moderate ascites. No incidentaladenopathy. SKELETON AND BODY WALL Diffuse body wall edema consistent with anasarca. Incompletely imagedplate and screw fixation of the right femoral diaphysis. IMPRESSION: 1. Diffuse body wall edema, bilateral pleural effusions and abdominopelvicascites consistent with anasarca. 2. Incidental findings described above. The study is performed without intravenous contrast. This limits thesensitivity of the exam for the detection bowel pathology, focal lesionsof the abdominopelvic viscera and vascular pathology including significantvascular stenosis, occlusion and dissection. Please note that all CT scans at this facility use dose modulation,iterative reconstruction, and/or weight-based dosing when appropriate toreduce radiation dose to as low as reasonably achievable. Dictated by Brayan Brandt MD @ 08/19/2023 12:56:40 PM (Electronically Signed) Alexus Floyd DO CT * LIPID PANEL W REFLEX MEASURED LDL (06/09/2023 2:50 PM [facility]) CHOLESTEROL,TOTAL 145 100 - 199 mg/dL 06/09/2023 3:[address] [facility] Comment: Cholesterol, Total Reference Ranges Desirable <200 mg/dL Borderline 200-239 mg/dL High >=240 mg/dL TRIGLYCERIDES 91 <150 mg/dL 06/09/2023 3:[address] [facility] HDL CHOLESTEROL 62 >40 mg/dL 3:[address] [facility] NON-HDL CHOLESTEROL 83 <145 mg/dl 06/09/2023 3:[address] [facility] CHOL/HDL RATIO 2.34 <4.50 06/09/2023 3:[address] [facility] LDL CHOLESTEROL 65 <=130 mg/dL 06/09/2023 3:[address] [facility] VLDL CHOLESTEROL 18 <=30 mg/dL 06/09/2023 3:[address] [facility] PROVIDER ORDERED STATUS RANDOM 06/09/2023 3:[address] [facility] Blood BLOOD SPECIMEN / Unknown Butterfly / Unknown 06/09/2023 2:50 PM [facility] 06/09/2023 2:54 PM [facility] Irfalba Phoenix DO CHEMISTRY [facility] SENDOUT INTERNAL ZIP [id number] [address] [place] [address] * HEMOGLOBIN A1C MONITORING (POCT) (06/09/2023 2:50 PM [facility]) HEMOGLOBIN A1C MONITORING (POCT) 6.2 <=6.4 % 06/09/2023 3:[address] [facility] Blood BLOOD SPECIMEN / Unknown Butterfly / Unknown 06/09/2023 2:50 PM [facility] 06/09/2023 2:54 [address] [facility] N[address] [facility] - 06/09/2023 3:02 PM [facility] ? (<=6.9%) ? Indicates good control ? (7.0% to 7.9%) ? Indicates fair control ? (>=8.0%) ? Indicates poor control ?? NOTE: ??These thresholds are guidelines and ?individual targets may vary. Falsely low levels may be seen with: Recent Transfusion, Recent Significant Blood Loss, Hemolytic Diseases, or Falsely elevated levels may be seen with: Untreated Anemias, Splenectomy ? Monico Phoenix DO CHEMISTRY 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 Directive 03/26/2022 022 * Full Code (Latest Code Status on File) Date Activated Date Inactivated Comments 04/27/2023 6:35 AM 04/27/2023 2:08 PM Question Answer Comments Code Status Discussion: Unable to Assess Preferences, Provider to review later * Full Code Date Activated Date Inactivated Comments 04/27/2023 6:35 AM 04/27/2023 6:35 AM Question Answer Comments Code Status Discussion: Unable to Assess Preferences, Provider to review later * Full Code Date Activated Date Inactivated Comments 10/01/2022 8:38 PM 10/13/2022 12:42 PM Question Answer Comments Code Status Discussion: Reviewed Preferences * Full Code Date Activated Date Inactivated Comments 08/15/2022 9:52 AM 08/15/2022 5:21 PM Question Answer Comments Code Status Discussion: Reviewed Preferences * Full Code Date Activated Date Inactivated Comments 03/20/2022 12:04 PM 04/09/2022 4:06 PM Question Answer Comments Code Status Discussion: Reviewed Preferences Care Teams 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
== END 2023-08-27 10:44 | disposition home or self-care (01) ==
PROVIDERS: PCP Family Medicine; Visit Provider Family Medicine
DX: I50.9 Heart failure, unspecified (principal); I51.7 Cardiomegaly; I35.1 Nonrheumatic aortic (valve) insufficiency; I34.0 Nonrheumatic mitral (valve) insufficiency; I31.39 Other pericardial effusion (noninflammatory); R18.8 Other ascites
CPT/HCPCS: 93306